=== PATIENT | female | born 2000 | race Caucasian/White ===

== ENCOUNTER 2018-03-31 11:22 | Outpatient (CLI) | payer MEDICAID ==
--- NOTE | 2018-04-02 23:05 | Non Stress Test Report ---
Non Stress Test Datetime Report Generated by CPN: 04/02/2018 23:04 DEMOGRAPHIC EGA NST: 34.6 INDICATION Indication for Study: Chronic Hypertension Indication for Study: Gestational Hypertension VITAL SIGNS Temperature - NST: 97.8 Pulse - NST: 112 RESP - NST: 20 NBPSYS NST: 120 NBPDIA NST: 72 MONITORING Monitor Explained: Monitor Explained; Test Explained; Patient Verbalized Understanding Monitor Explained: Monitor Explained; Test Explained; Patient Verbalized Understanding Time on Monitor: 03/31/2018 11:36 Time on Monitor: 03/31/2018 11:40 Time off Monitor: 03/31/2018 12:02 Time off Monitor: 03/31/2018 12:02 NST Duration: 26 NST Duration: 22 NST INTERVENTIONS NST Interventions: PO Hydration; Reposition Patient NST Interventions: PO Hydration Physician Notified NST: A. Lauren, CNM Physician Notified NST: A. Lauren, CNM BABY A: [id number] BABY A Movement : Present Movement : Present Contraction Frequency : none Contraction Frequency : none FHR Baseline : 135 FHR Baseline : 135 Accelerations : 15X15 Accelerations : 15X15 Decelerations : None Decelerations : None Variability : Moderate 6-25bpm Variability : Moderate 6-25bpm NST Review: Meets Criteria for Reactive NST NST Review: Meets Criteria for Reactive NST NST Review and Verified By : Gema Gonsales RN NST Results: Reactive NST Results: Reactive NST REPORT Report Trigger: Send Report
--- NOTE | 2018-04-03 01:43 | Non Stress Test Report ---
Non Stress Test Datetime Report Generated by CPN: 04/03/2018 01:43 DEMOGRAPHIC EGA NST: 35.1 INDICATION Indication for Study: Ordered by Provider URINE RESULTS Urine Protein, NST: Positive Urine Ketones - NST: Positive Urine Glucose - NST: Negative Urine Blood - NST: Negative MONITORING Monitor Explained: Monitor Explained; Test Explained; Patient Verbalized Understanding Time on Monitor: 04/02/2018 23:15 Time off Monitor: 04/03/2018 00:48 NST Duration: 93 NST INTERVENTIONS NST Interventions: PO Hydration; Other NST Interventions Other: Popsicle Physician Notified NST: Dr. Madrid BABY A Movement : Present Contraction Frequency : Occasional FHR Baseline : 125 Accelerations : 15X15 Decelerations : None Variability : Moderate 6-25bpm NST Review: Meets Criteria for Reactive NST NST Review and Verified By : Maria Alejandra Stroud RN NST Results: Reactive NST REPORT Report Trigger: Send Report
== END 2018-03-31 12:05 | disposition home or self-care (01) ==
LOC: LC 11:22
PROVIDERS: ATTEND Obstetrics & Gynecology
PROC: 4A1HXCZ Monitoring of Products of Conception, Cardiac Rate, External Approach (ICD-10-PCS; principal; 2018-03-31)
DX: O13.3 Gestational [pregnancy-induced] hypertension without significant proteinuria, third trimester (principal); Z3A.35 35 weeks gestation of pregnancy
CPT/HCPCS: 59025

== ENCOUNTER 2018-04-02 22:52 | Outpatient (CLI) | payer MEDICAID ==
[2018-04-02 23:27] LABS: APPEARANCE,URINE CLOUDY; BILIRUBIN,URINE NEGATIVE (NEGATIVE); CALCIUM OXALATE CRYSTALS,URINE FEW /HPF; COLOR,URINE AMBER; GLUCOSE, URINE NEGATIVE (NEGATIVE); KETONES,URINE 80 mg/dL (NEGATIVE); LEUKOCYTE ESTERASE,URINE MODERATE (NEGATIVE); NITRITE,URINE NEGATIVE (NEGATIVE); PROTEIN,URINE 30 mg/dL (NEGATIVE); URINE SPECIFIC GRAVITY 1.019
[2018-04-02 23:46] LABS: URINE AMPHETAMINES SCREEN NEGATIVE; URINE BARBITURATES SCREEN NEGATIVE; URINE BENZODIAZEPINES SCREEN NEGATIVE; URINE COCAINE SCREEN NEGATIVE; URINE MARIJUANA (THC) SCREEN NEGATIVE; URINE METHADONE SCREEN NEGATIVE; URINE PHENCYCLIDINE SCREEN NEGATIVE
== END 2018-04-03 00:58 | disposition home or self-care (01) ==
LOC: ER 22:52 → LC 04-03 00:58
PROVIDERS: ATTEND Obstetrics & Gynecology
PROC: 4A1HXCZ Monitoring of Products of Conception, Cardiac Rate, External Approach (ICD-10-PCS; principal; 2018-04-02)
DX: Z34.93 Encounter for supervision of normal pregnancy, unspecified, third trimester (principal); Z3A.35 35 weeks gestation of pregnancy
CPT/HCPCS: 59025; 80307; 81001

== ENCOUNTER 2018-04-18 10:45 | Outpatient (CLI) | payer MEDICAID ==
--- NOTE | 2018-04-18 13:13 | Non Stress Test Report ---
Non Stress Test Datetime Report Generated by CPN: 04/18/2018 13:12 DEMOGRAPHIC EGA NST: 37.3 INDICATION Indication for Study: Ordered by Provider MONITORING Monitor Explained: Monitor Explained; Test Explained; Patient Verbalized Understanding Time on Monitor: 04/18/2018 11:39 Time off Monitor: 04/18/2018 12:39 NST Duration: 60 NST INTERVENTIONS NST Interventions: None Physician Notified NST: C. Mancuso, CNM BABY A: [id number] BABY A Movement : Present Contraction Frequency : none FHR Baseline : 145 Accelerations : 15X15 Decelerations : None Variability : Moderate 6-25bpm NST Review: Meets Criteria for Reactive NST NST Review and Verified By : Flavio Anguiano RN NSRosario Results: Reactive NST REPORT Report Trigger: Send Report
== END 2018-04-18 12:42 | disposition home or self-care (01) ==
LOC: LC 10:45
PROVIDERS: ATTEND Obstetrics & Gynecology Gynecology
PROC: 4A1HXCZ Monitoring of Products of Conception, Cardiac Rate, External Approach (ICD-10-PCS; principal; 2018-04-18)
DX: O10.913 Unspecified pre-existing hypertension complicating pregnancy, third trimester (principal); Z3A.37 37 weeks gestation of pregnancy
CPT/HCPCS: 59025

== ENCOUNTER 2018-04-18 22:13 | Outpatient (CLI) | payer MEDICAID ==
--- NOTE | 2018-04-18 23:04 | Non Stress Test Report ---
Non Stress Test Datetime Report Generated by CPN: 04/18/2018 23:03 DEMOGRAPHIC EGA NST: 37.3 INDICATION Indication for Study: Ordered by Provider MONITORING Monitor Explained: Monitor Explained; Test Explained; Patient Verbalized Understanding Time on Monitor: 04/18/2018 22:40 Time off Monitor: 04/18/2018 23:00 NST Duration: 20 NST INTERVENTIONS NST Interventions: PO Hydration; Reposition Patient Physician Notified NST: Dr. Logan BABY A: [id number] BABY A Movement : Present Contraction Frequency : none FHR Baseline : 125 Accelerations : 15X15 Decelerations : None Variability : Moderate 6-25bpm NST Review: Meets Criteria for Reactive NST NST Review and Verified By : Otoniel RN NST Results: Reactive NST REPORT Report Trigger: Send Report
[2018-04-18 23:06] LABS: URINE AMPHETAMINES SCREEN NEGATIVE; URINE BARBITURATES SCREEN NEGATIVE; URINE BENZODIAZEPINES SCREEN NEGATIVE; URINE COCAINE SCREEN NEGATIVE; URINE MARIJUANA (THC) SCREEN NEGATIVE; URINE METHADONE SCREEN NEGATIVE; URINE PHENCYCLIDINE SCREEN NEGATIVE
== END 2018-04-18 23:17 | disposition home or self-care (01) ==
LOC: LC 22:13
PROVIDERS: ATTEND Obstetrics & Gynecology Gynecology
PROC: 4A1HXCZ Monitoring of Products of Conception, Cardiac Rate, External Approach (ICD-10-PCS; principal; 2018-04-18)
DX: O10.913 Unspecified pre-existing hypertension complicating pregnancy, third trimester (principal); O26.893 Other specified pregnancy related conditions, third trimester; R51 Headache; Z3A.37 37 weeks gestation of pregnancy
CPT/HCPCS: 59025; 80307

== ENCOUNTER 2018-04-25 08:47 | Outpatient (CLI) | payer MEDICAID ==
--- NOTE | 2018-04-25 09:55 | Non Stress Test Report ---
Non Stress Test Datetime Report Generated by CPN: 04/25/2018 09:55 DEMOGRAPHIC EGA NST: 38.3 INDICATION Indication for Study: Chronic Hypertension; Ordered by Provider Indication for Study (NST) Other: Office NST MONITORING Monitor Explained: Monitor Explained; Test Explained; Patient Verbalized Understanding Time on Monitor: 04/25/2018 09:30 Time off Monitor: 04/25/2018 09:54 NST Duration: 24 NST INTERVENTIONS NST Interventions: PO Hydration; Reposition Patient Physician Notified NST: Mc BABY A: [id number] BABY A Movement : Present Contraction Frequency : denies FHR Baseline : 125 Accelerations : 15X15 Decelerations : None Variability : Moderate 6-25bpm NST Review: Meets Criteria for Reactive NST NST Review and Verified By : MAGUE Diaz Results: Reactive NST REPORT Report Trigger: Send Report
== END 2018-04-25 10:07 | disposition home or self-care (01) ==
LOC: LC 08:47
PROVIDERS: ATTEND Obstetrics & Gynecology
PROC: 4A1HXCZ Monitoring of Products of Conception, Cardiac Rate, External Approach (ICD-10-PCS; principal; 2018-04-25)
DX: O16.3 Unspecified maternal hypertension, third trimester (principal); Z3A.38 38 weeks gestation of pregnancy
CPT/HCPCS: 59025

== ENCOUNTER 2018-04-27 09:03 | Outpatient (CLI) | payer MEDICAID ==
[2018-04-27 09:29] LABS: APPEARANCE,URINE SLIGHTLY-CLOUDY; BILIRUBIN,URINE NEGATIVE (NEGATIVE); GLUCOSE, URINE NEGATIVE (NEGATIVE); KETONES,URINE NEGATIVE (NEGATIVE); LEUKOCYTE ESTERASE,URINE NEGATIVE (NEGATIVE); NITRITE,URINE NEGATIVE (NEGATIVE); PROTEIN,URINE NEGATIVE (NEGATIVE); URINE SPECIFIC GRAVITY 1.016
[2018-04-27 09:34] LABS: COLOR,URINE DARK YELLOW
[2018-04-27 09:45] LABS: URINE AMPHETAMINES SCREEN NEGATIVE; URINE BARBITURATES SCREEN NEGATIVE; URINE BENZODIAZEPINES SCREEN NEGATIVE; URINE COCAINE SCREEN NEGATIVE; URINE MARIJUANA (THC) SCREEN NEGATIVE; URINE METHADONE SCREEN NEGATIVE; URINE PHENCYCLIDINE SCREEN NEGATIVE
--- NOTE | 2018-04-27 10:35 | Non Stress Test Report ---
Non Stress Test Datetime Report Generated by CPN: 04/27/2018 10:35 DEMOGRAPHIC EGA NST: 38.5 INDICATION Indication for Study: Ordered by Provider MONITORING Monitor Explained: Monitor Explained; Test Explained; Patient Verbalized Understanding Time on Monitor: 04/27/2018 09:15 Time off Monitor: 04/27/2018 10:24 NST Duration: 69 NST INTERVENTIONS NST Interventions: PO Hydration; Reposition Patient Physician Notified NST: J Arguelles CNM BABY A: [id number] BABY A Movement : Present Contraction Frequency : rare FHR Baseline : 130 Accelerations : 15X15 Decelerations : None Variability : Moderate 6-25bpm NST Review: Meets Criteria for Reactive NST NST Review and Verified By : Alvina Anguiano RN NST Results: Reactive NST REPORT Report Trigger: Send Report
== END 2018-04-27 10:30 | disposition home or self-care (01) ==
LOC: LC 09:03
PROVIDERS: ATTEND Student in an Organized Health Care Education/Training Program
PROC: 4A1HXCZ Monitoring of Products of Conception, Cardiac Rate, External Approach (ICD-10-PCS; principal; 2018-04-27)
DX: Z34.93 Encounter for supervision of normal pregnancy, unspecified, third trimester (principal)
CPT/HCPCS: 59025; 80307; 81005

== ENCOUNTER 2018-04-29 19:56 | Inpatient (IN) | payer MEDICAID ==
[2018-04-29] MEDS ORDERED: RINGERS SOLUTION,LACTATED 300 ML IV ONE (20:09)
[2018-04-29] MEDS ORDERED: DINOPROSTONE 10 MG VAGINAL INSERT.SR PV PRN (20:09)
[2018-04-29] MEDS ORDERED: OXYTOCIN/NORMAL SALINE 20 UNIT/1,000 ML RTUINJ IV PRN (20:09)
[2018-04-29 20:26] LABS: APPEARANCE,URINE SLIGHTLY-CLOUDY; BILIRUBIN,URINE NEGATIVE (NEGATIVE); COLOR,URINE YELLOW; GLUCOSE, URINE NEGATIVE (NEGATIVE); KETONES,URINE NEGATIVE (NEGATIVE); LEUKOCYTE ESTERASE,URINE NEGATIVE (NEGATIVE); NITRITE,URINE NEGATIVE (NEGATIVE); PROTEIN,URINE NEGATIVE (NEGATIVE); URINE SPECIFIC GRAVITY 1.005; UROBILINOGEN,URINE NEGATIVE mg/dL (<2.0)
[2018-04-29 20:33] LABS: ABSOLUTE LYMPHOCYTES (AUTO) 1.3 10^3/uL (0.5-4.7); ABSOLUTE MONOCYTES (AUTO) 0.5 10^3/uL (0.1-1.4); ABSOLUTE NEUT (AUTO) 5.2 10^3/uL (1.7-8.2); BASOPHILS % (AUTO) 0.4 % (0-2); EOSINOPHILS % (AUTO) 0.7 % (0-6); HEMATOCRIT 38.6 % (36.0-47.0); HEMOGLOBIN 13.2 g/dL (12.0-15.5); LYMPHOCYTES % (AUTO) 18.5 % (13-45); MEAN CORPUSCULAR HEMOGLOBIN 30.2 pg (27.0-33.4); MEAN CORPUSCULAR HGB CONC 34.3 g/dL (32.0-36.0); MEAN CORPUSCULAR VOLUME 88 fl (80-97); MONOCYTES % (AUTO) 6.5 % (3-13); PLATELET COUNT 149 10^3/uL (150-450); RED BLOOD COUNT 4.38 10^6/uL (3.72-5.28); RED CELL DISTRIBUTION WIDTH 13.5 % (11.5-14.0); SEGMENTED NEUTROPHILS % (AUTO) 73.9 % (42-78); TOTAL CELLS COUNTED % (AUTO) 100 %
[2018-04-29 20:39] LABS: URINE AMPHETAMINES SCREEN NEGATIVE; URINE BARBITURATES SCREEN NEGATIVE; URINE BENZODIAZEPINES SCREEN NEGATIVE; URINE COCAINE SCREEN NEGATIVE; URINE MARIJUANA (THC) SCREEN NEGATIVE; URINE METHADONE SCREEN NEGATIVE; URINE PHENCYCLIDINE SCREEN NEGATIVE
[2018-04-29] MEDS: RINGERS SOLUTION,LACTATED 1,000 ML IV PRN ×2 (20:43→22:55)
[2018-04-29] MEDS ORDERED: DINOPROSTONE 10 MG VAGINAL INSERT.SR ONE (22:27)
[2018-04-30] MEDS ORDERED: ZOLPIDEM TARTRATE 5 MG TABLET ONE (01:15)
[2018-04-30] MEDS ORDERED: GUAIFENESIN SYRP 200 MG/10 ML UDC PO ONE (05:12)
[2018-04-30] MEDS ORDERED: GUAIFENESIN SYRP 200 MG/10 ML UDC ONE (05:23)
--- NOTE | 2018-04-30 08:16 | Admission Physical ---
Datetime Report Generated by CPN: 04/30/2018 08:15 CURRENT ADMISSION Chief Complaint: Scheduled Induction of Labor Indication for Induction: Chronic Secondary HTN (Specify Cause); Gestational HTN Admit Impression : Term, Intrauterine ; Induction of Labor Admit Plan: Admit to Unit; Initiate Labor Induction Protocol ALLERGIES Medication Allergies: No Medication Allergies: No Known Allergies (04/29/2018) Latex: No Latex Allergies Food Allergies: Denies Environmental Allergies: Denies OBSTETRICAL HISTORY EDC: 05/06/2018 00:00 : 1 Para: 0 Term: 0 : 0 SAB: 0 IAB: 0 Ectopic: 0 Livin Cesareans: 0 VBACs: 0 Multiple Births: 0 Gestational Diabetes: No Rh Sensitization: No Incompetent Cervix: No LOUIS: No Infertility: No ART Treatment: No Uterine Anomaly: No IUGR: No Hx Previous C/S: No Macrosomia: No Hx Loss/Stillborn: No PIH: Yes Hx : No Placenta Previa/Abruption: No Depression/PP Depression: No PTL/PROM: No Post Hemorrhage: No Current Procedures: Ultrasound; NST Obstetrical History Comments: G1: current; CHTN SEE RECORDS Alcohol: No Marijuana : No Cocaine: No Other Illicit Drugs: No Cigarettes: Never Smoker. [id number] MEDICAL HISTORY Diabetes: No Blood Transfusion: No Pulmonary Disease (Asthma, TB): No Breast Disease: No Hypertension: Yes Doormaker Surgery: No Heart Disease: No Hosp/Surgery: Yes Autoimmune Disorder: No Anesthetic Complications: No Kidney Disease: No Abnormal Pap Smear: No Neuro/Epilepsy: No Psychiatric Disorders: No Other Medical Diseases: No Hepatitis/Liver Disease: No Significant Family History: No Varicosities/Phlebitis: No Trauma/Violence : No Thyroid Dysfunction: Yes Medical History Comments: Hypothryoidism; CHTN; Tonsillectomy and adenoidectomy as a child INFECTIOUS HISTORY Gonorrhea: No Genital Herpes: No Chlamydia: No Tuberculosis: No Syphilis: No Hepatitis: No HIV/AIDS Exposure: No Rash or Viral Illness: No HPV: No PHYSICAL EXAM General: Normal HEENT: Normal Neurologic: Normal Thyroid: Normal Heart: Normal Lungs: Normal Breast: Normal Back: Normal Abdomen: Normal Genitourinary Exam: Normal Extremities: Normal DTRs: Normal Pelvic Type: Adequate Vital Signs: Reviewed; Within Normal Limits VAGINAL EXAM Dilatation: 1 Effacement: 70 Station: -3 MEMBRANES Pooling: Negative Membranes: Intact FETUS A EGA: 39.1 Monitoring: External US FHR- Baseline: 150 Variability: Moderate 6-25bpm Accelerations: 15X15 Decelerations: None FHR Category: Category I Estimated Weight (gm): 3500 Presentation: Vertex PLANS FOR LABOR AND DELIVERY Labor and Delivery: None Pain Management: Epidural Feeding Preference: Both Benefit of Breast Feed Discussed: Yes Circumcision: Yes INFORMED CONSENT Signature: with User ID: [email or web address]
[2018-04-30] MEDS ORDERED: NALBUPHINE HCL INJ 10 MG/1 ML AMPULE INJ ONE (08:30)
[2018-04-30] MEDS: RINGERS SOLUTION,LACTATED 1,000 ML IV PRN ×2 (08:37→18:19)
[2018-04-30] MEDS ORDERED: NALBUPHINE HCL INJ 10 MG/1 ML AMPULE ONE (09:37)
[2018-04-30] MEDS ORDERED: OXYTOCIN 10 UNIT/ML VIAL ONE (10:08)
[2018-04-30] MEDS ORDERED: MISOPROSTOL 0.2 MG TABLET ONE (10:08)
[2018-04-30] MEDS ORDERED: LIDOCAINE 1% INJ-PF (10 MG/ML) 30 ML SDV ONE (10:08)
[2018-04-30] MEDS ORDERED: OXYTOCIN/NORMAL SALINE 20 UNIT/1,000 ML RTUINJ ONE (10:08)
--- NOTE | 2018-04-30 10:50 | L&D Progress Notes ---
PROGRESS NOTES Datetime Report Generated by CPN: 04/30/2018 10:49 PROGRESS NOTE Impression: Normal Progression of Labor Procedures: Sterile Vag Exam Plan: Continue Present Management; Induction; Cervical Ripening Informed Consent Obtained: Vaginal Delivery; Induction of Labor; Risks, Benefits and Alternatives Discussed Comment: cervidil out. Now desires Nubain. Cooks catheter placed. pt doing well. Begin pitocin. VAGINAL EXAM Dilatation: 2 Effacement: 60 Station: -3 Contractions: irreg LAST VAGINAL EXAM-NURSING Dilitation: 1.0 Dilitation: 1.0 Effacement: 70 Effacement: thick Station: -3 Station: -3 Contractions: Irregular ctx pattern Contractions: Pt reports feeling cramping Contractions: Pt denies feeling ctx's Contractions: Irregular ctx pattern Contractions: Pt denies feeling ctx's Contractions: Pt denies feeling ctx's Contractions: Pt denies feeling ctx's Contractions: Pt denies feeling ctx's and reports 0/5 pain Contractions: Pt denies feeling ctx's and reports 0/5 pain Contractions: no ctx. Contractions: no ctx MEMBRANES Pooling: Negative Membranes: Intact FETUS A FHR - Baseline: 125 Monitoring: External US Variability: Moderate 6-25bpm Accelerations: 15X15 Decelerations: None FHR Category: Category I : 39.1 Estimated Weight (gm): 3500 Presentation: Vertex SIGNATURE SIGNATURE: [id number];14,[id number];13,[id number] SIGNATURE: 13,[id number];14,[id number] SIGNATURE: 14,[id number] SIGNATURE: 14,[id number] SIGNATURE: 14,[id number] SIGNATURE: 14,[id number] SIGNATURE: 14,[id number] SIGNATURE: 14,[id number] Signature: with User ID: [email or web address]
[2018-04-30] MEDS ORDERED: LABETALOL HCL 200 MG TABLET ONE (12:52)
[2018-04-30] MEDS ORDERED: EPHEDRINE SULFATE INJ 50 MG/1 ML AMPULE ONE (13:15)
[2018-04-30] MEDS ORDERED: FENTANYL/BUPIVACAINE/NS/PF 300 MCG/150 ML RTUINJ EPI ONE (13:16)
[2018-04-30] MEDS ORDERED: BUPIVACAINE HCL 0.25 % INJ/PF (2.5 MG/1 ML) 30 ML VIAL ONE ×2 (13:16→20:15)
[2018-04-30] MEDS ORDERED: LIDOCAINE 1.5%/EPINEPHRINE INJ-PF 30 ML SDV ONE (13:16)
[2018-04-30 14:13] LABS: ABSOLUTE LYMPHOCYTES (AUTO) 0.7 10^3/uL (0.5-4.7); ABSOLUTE MONOCYTES (AUTO) 0.4 10^3/uL (0.1-1.4); ABSOLUTE NEUT (AUTO) 8.6 10^3/uL (1.7-8.2); BASOPHILS % (AUTO) 0.1 % (0-2); HEMATOCRIT 37.1 % (36.0-47.0); HEMOGLOBIN 12.7 g/dL (12.0-15.5); LYMPHOCYTES % (AUTO) 7.6 % (13-45); MEAN CORPUSCULAR HEMOGLOBIN 30.2 pg (27.0-33.4); MEAN CORPUSCULAR HGB CONC 34.2 g/dL (32.0-36.0); MEAN CORPUSCULAR VOLUME 88 fl (80-97); MONOCYTES % (AUTO) 3.6 % (3-13); PLATELET COUNT 123 10^3/uL (150-450); RED CELL DISTRIBUTION WIDTH 13.6 % (11.5-14.0); SEGMENTED NEUTROPHILS % (AUTO) 88.7 % (42-78); TOTAL CELLS COUNTED % (AUTO) 100 %; WHITE BLOOD COUNT 9.7 10^3/uL (4.0-10.5)
[2018-04-30] MEDS ORDERED: DIPHENHYDRAMINE HCL 50 MG/ML VIAL ONE (17:32)
[2018-04-30] MEDS ORDERED: DIPHENHYDRAMINE HCL 50 MG/ML VIAL IV ONE (17:43)
[2018-04-30] MEDS ORDERED: DEXTROSE 5%-WATER 1000 ML 1,000 ML IV PRN (18:21)
[2018-04-30] MEDS ORDERED: LIDOCAINE 2% INJ-PF (20 MG/ML) 10 ML AMPUL ONE (20:08)
--- NOTE | 2018-05-01 00:42 | L&D Progress Notes ---
PROGRESS NOTES Datetime Report Generated by CPN: 05/01/2018 00:42 PROGRESS NOTE Impression: Normal Progression of Labor Procedures: Sterile Vag Exam Plan: Continue Present Management; Induction Informed Consent Obtained: Vaginal Delivery; Induction of Labor; Risks, Benefits and Alternatives Discussed Comment: IUPC and FSE placed to achieve adequate ctx on last check approx 2 hours ago. Now AL/c/+2. Anticipate VAGINAL EXAM Dilatation: AL Effacement: 100 Station: 2 Contractions: q 2 Dilitation: anterior lip Dilitation: 8.0 Dilitation: 9.0 Dilitation: 7-8 Dilitation: 7-8 Dilitation: 5.0 Effacement: 100 Effacement: 90 Effacement: 90 Effacement: 90 Effacement: 90 Station: 2 Station: 0 (Annotations: edema of cervix noted. Pt with strong urge to push. Instructed not to actively push with uc. ) Station: -1 (Annotations: urge to push. Instructed to breathe through pressure as cervix is not completely dilated at this time) Station: -1 Station: -2 Contractions: MVU 220 Contractions: MVU 210 Contractions: MVU 190 Contractions: MVU 220 Contractions: RN at bedside palpating contractions Contractions: IUPC inserted by Dr Hong Contractions: RN at bedside adjusting monitors and palpating irregular contractions Contractions: C/O severe rectal pressure. Dr Gama aware. IVF bolus 300 ml D5W Contractions: coupling Contractions: abd palpates soft between uc Contractions: coupling Contractions: requests epidural IVF Karely started MEMBRANES Membranes: Ruptured Amniotic Fluid Color: Clear FETUS A FHR - Baseline: 125 Monitoring: External US Decelerations: None FHR Category: Category I FETUS C SIGNATURE: 13,[id number];14,[id number];10,[id number] Signature: with User ID: [email or web address]
[2018-05-01] MEDS ORDERED: OXYTOCIN 10 UNIT/ML VIAL ONE (02:22)
[2018-05-01] MEDS ORDERED: DIPHENHYDRAMINE HCL 25 MG CAPSULE PO PRN (02:45)
[2018-05-01] MEDS ORDERED: MISOPROSTOL 0.2 MG TABLET PR ONE (02:45)
[2018-05-01] MEDS ORDERED: GLYCERIN/WITCH HAZEL LEAF 1 EACH MED..PAD TP PRN (02:45)
[2018-05-01] MEDS ORDERED: OXYTOCIN/NORMAL SALINE 20 UNIT/1,000 ML RTUINJ IV PRN (02:45)
[2018-05-01] MEDS ORDERED: NA PHOS,M-B/NA PHOS,DI-BA (ADULT) 133 ML ENEMA PR PRN (02:45)
[2018-05-01] MEDS ORDERED: ACETAMINOPHEN 325 MG TABLET PO PRN (02:45)
[2018-05-01] MEDS ORDERED: PSEUDOEPHEDRINE HCL 30 MG TABLET PO PRN (02:45)
[2018-05-01] MEDS ORDERED: BENZOCAINE/MENTHOL AEROSOL SPRAY 56 ML TOP PRN (02:45)
[2018-05-01] MEDS ORDERED: MEASLES,MUMPS&RUBELLA VACC/PF 0.5 ML VIAL SUBCUT PRN (02:45)
[2018-05-01] MEDS ORDERED: PROMETHAZINE HCL INJ 25 MG/1 ML VIAL IV PRN (02:45)
[2018-05-01] MEDS ORDERED: MAGNESIUM HYDROXIDE SUSP 30 ML UDCUP PO PRN (02:45)
[2018-05-01] MEDS ORDERED: ACETAMINOPHEN WITH CODEINE #3 TABLET PO PRN ×2 (02:45)
[2018-05-01] MEDS ORDERED: PROMETHAZINE HCL 25 MG TABLET PO PRN (02:45)
[2018-05-01] MEDS ORDERED: DIBUCAINE 1% OINTMENT 28 GM TP PRN (02:45)
[2018-05-01] MEDS ORDERED: DIPH/PERTUSS(ACELL)/TETANUS VAC/PF 0.5 ML SYR (>=10YO) IM PRN (02:45)
[2018-05-01] MEDS ORDERED: ZOLPIDEM TARTRATE 5 MG TABLET PO PRN (02:45)
[2018-05-01] MEDS ORDERED: PROMETHAZINE HCL 25 MG SUPP.RECT PR PRN (02:45)
--- NOTE | 2018-05-01 03:50 | Delivery Summary ---
Del Sum A-C Datetime Report Generated by CPN: 05/01/2018 03:50 DELIVERY PERSONNEL DELIVERY PERSONNEL: [id number] Delivery Doctor:: Cami Hong MD Labor and Delivery Nurse:: Salina Cruz RN Labor and Delivery Nurse:: Arianne Parikh RN Maintenance Equipment Operator/ASSISTANT LIBRARIAN: Sally Moncada, ANTIQUE REPAIRER MATERNAL INFORMATION Delivery Anesthesia: Epidural Medications After Delivery: Pitocin 10 Units IM; Pitocin Drip 20 Units/1000ml NSS; Cytotec 1000mcg Per Rectum/Vagina Maternal Complications: None Provider Comments: VMI delivered in LUIS A presentation with tight nuchal and body cord delivered through. Shoulders and body delivered without difficulty. Cord doubly clamped and cut and to warmer for NICU. FF at U but lost IV and 20units IM pitocin given. Cytotec 1000mcg given AL. Left vaginal sidewall laceration repaired. Good hemostasis. Mother stable and baby to NICU. No maternal fever or tachycardia during labor. SROM at approx 1000 am therefore 16 hours ruptured at delivery. Baby to NICU for fever. LABOR SUMMARY EDC: 05/06/2018 00:00 No. Babies in Womb: 1 Attempted: No Labor Anesthesia: Epidural LABOR INFORMATION Reason for Induction: Gestational Hypertension Onset of Labor: 04/30/2018 10:24 Complete Dilatation: 05/01/2018 01:22 Cervical Ripening Agents: Cervidil Oxytocin: Induction Group B Beta Strep: Negative Steroids Given: None Reason Steroids Not Administered: Not Applicable MEMBRANES Membranes Rupture Method: Spontaneous Rupture of Membranes: 04/30/2018 10:55 Length of Rupture (hr): 15.37 Amniotic Fluid Color: Clear Amniotic Fluid Amount: Moderate Amniotic Fluid Odor: Normal STAGES OF LABOR Stage 1 hr: 14 Stage 1 min: 58 Stage 2 hr: 0 Stage 2 min: 55 Stage 3 hr: 0 Stage 3 min: 2 Total Time in Labor hr: 15 Total Time in Labor min: 55 VAGINAL DELIVERY Episiotomy: None Laceration #1: Vaginal Laceration Extension #1: N/A Laceration Repair: Yes Laceration Repair Note: Left labial laceration repaired with good hemostasis. Sponge Count Correct: Yes Sharps Count Correct: Yes CSECTION DELIVERY Primary Indication: N/A Secondary Indication: N/A CSection Incidence: N/A Labor: N/A Elective: N/A CSection Incision: N/A BABY A INFORMATION Infant Delivery Date/Time: 05/01/2018 02:17 Method of Delivery: Vaginal Born in Route : No : N/A Forceps: N/A Vacuum Extraction: N/A Shoulder Dystocia : No PRESENTATION/POSITION BABY A Presentation: Cephalic Cephalic Presentation: Vertex Vertex Position: Left Occipital Anterior Breech Presentation: N/A PLACENTA INFORMATION BABY A Placenta Delivery Time : 05/01/2018 02:19 Placenta Method of Delivery: Spontaneous Placenta Status: Delivered SCORES BABY A Heart Rate 1 min: >100 bpm Resp Effort 1 min: Slow, Irregular Reflex Irritability 1 min: Cough or Sneeze or Pulls Away Muscle Tone 1 min: Some Flexion of Extremities Color 1 min: Body [place], Extremities Blue Resuscitation Effort 1 min: Tactile Stimulation SCORE 1 MIN: 7 Heart Rate 5 min: >100 bpm Resp Effort 5 min: Good Cry Reflex Irritability 5 min: Cough or Sneeze or Pulls Away Muscle Tone 5 min: Active Motion Color 5 min: Body [place], Extremities Blue SCORE 5 MIN: 9 INFANT INFORMATION BABY A Gestational Age at Delivery: 39.1 Gestational Status: Full Term- 39- 40.6 Weeks Infant Outcome : Liveborn Condition : Stable Sex: Male IDENTIFICATION BABY A Infant Verification Date/Time: 05/01/2018 03:28 ID Band Number: [id number] Mother's Name Verified: Yes Infant RN Verifying : NDoyle RN Additional Verifying Personnel: [facility] RN WEIGHT/LENGTH BABY A Infant Birthweight (gm): 3556 Weight (lb): 7 Weight (oz): 13 Length (in): 20.25 Length (cm): 51.44 CORD INFORMATION BABY A No. Cord Vessels: 3 Nuchal Cord : Around Neck x1, Tight Nuchal Cord- Other: body cord Suction: Mouth; Nose BABY B INFORMATION : N/A SIGNATURES Signature: with User ID: [email or web address]
[2018-05-01] MEDS: LABETALOL HCL 200 MG TABLET PO SCH ×4 (05:11→21:33)
[2018-05-01] MEDS: IBUPROFEN 800 MG TABLET PO SCH ×3 (05:21→21:35)
[2018-05-01] MEDS: DOCUSATE SODIUM 100 MG CAPSULE PO SCH ×2 (09:22→17:13)
[2018-05-01] MEDS: FERROUS SULFATE 325 MG TABLET PO SCH ×2 (09:22→17:13)
[2018-05-01] MEDS: SENNOSIDES/DOCUSATE 8.6-50 MG 1 EACH TABLET PO SCH (09:22)
[2018-05-01] MEDS: PRENATAL VITAMIN W DHA CAPSULE PO SCH (09:22)
[2018-05-01] MEDS: FAMOTIDINE 20 MG TABLET PO SCH ×2 (09:22→21:33)
--- NOTE | 2018-05-01 09:49 | PDOC PROGRESS REPORT ---
Subjective-OB Progress Note for:: 05/01/18 Subjective: Pt doing well, no concerns. She reports light bleeding, regular diet and voiding without difficulty. Physical Exam (OB) Vital Signs: Temp Pulse Resp BP Pulse Ox 98.7 F 111 H 19 119/58 L 97 05/01/18 07:40 05/01/18 07:40 05/01/18 07:40 05/01/18 07:40 05/01/18 07:40 Intake & Output 04/30/18 05/01/18 05/02/18 06:59 06:59 06:59 Intake Total 275 1004 1999 Balance 275 1004 1999 Weight 115 kg - PIH/Pre-Eclampsia DTR's: 2 + Clonus: Negative Headache: Absent Epigastric Pain: No Visual Changes: No - Abdomen Description: Soft Hernia Present: No Fundal Description: Firm, Midline Fundal Height: u/3 - u/4 Objective-Diagnostic Laboratory: 04/30/18 13:42 04/30/18 13:42 WBC 9.7 RBC 4.20 Hgb 12.7 Hct 37.1 MCV 88 MCH 30.2 MCHC 34.2 RDW 13.6 Plt Count 123 L Seg Neutrophils % 88.7 H Lymphocytes % 7.6 L Monocytes % 3.6 Eosinophils % 0.0 Basophils % 0.1 Absolute Neutrophils 8.6 H Absolute Lymphocytes 0.7 Absolute Monocytes 0.4 Absolute Eosinophils 0.0 Absolute Basophils 0.0 Assessment and Plan(PN) - Assessment and Plan (1) Vaginal delivery Is this a current diagnosis for this admission?: Yes (2) Chronic hypertension affecting Is this a current diagnosis for this admission?: Yes - Time Spent with Patient Time with patient: Less than 15 minutes Medications reviewed and adjusted accordingly: Yes - Disposition Anticipated Discharge: Home Within: within 24 hours
[2018-05-01] MEDS: GUAIFENESIN SYRP 200 MG/10 ML UDC PO PRN (17:15)
[2018-05-02] MEDS: IBUPROFEN 800 MG TABLET PO SCH ×3 (05:32→22:46)
[2018-05-02 06:19] LABS: MEAN CORPUSCULAR HEMOGLOBIN 30.5 pg (27.0-33.4); MEAN CORPUSCULAR HGB CONC 34.2 g/dL (32.0-36.0); MEAN CORPUSCULAR VOLUME 89 fl (80-97); PLATELET COUNT 117 10^3/uL (150-450); RED BLOOD COUNT 3.36 10^6/uL (3.72-5.28); RED CELL DISTRIBUTION WIDTH 13.8 % (11.5-14.0); WHITE BLOOD COUNT 10.4 10^3/uL (4.0-10.5)
[2018-05-02 06:20] LABS: HEMOGLOBIN 10.3 g/dL (12.0-15.5)
[2018-05-02] MEDS: FAMOTIDINE 20 MG TABLET PO SCH ×2 (09:15→22:46)
[2018-05-02] MEDS: FERROUS SULFATE 325 MG TABLET PO SCH ×2 (09:15→17:14)
[2018-05-02] MEDS: DOCUSATE SODIUM 100 MG CAPSULE PO SCH ×2 (09:15→17:14)
[2018-05-02] MEDS: PRENATAL VITAMIN W DHA CAPSULE PO SCH (09:15)
[2018-05-02] MEDS: LABETALOL HCL 200 MG TABLET PO SCH ×2 (09:16→22:47)
[2018-05-02] MEDS: SENNOSIDES/DOCUSATE 8.6-50 MG 1 EACH TABLET PO SCH (09:16)
--- NOTE | 2018-05-02 09:51 | PDOC PROGRESS REPORT ---
Subjective-OB Progress Note for:: 05/02/18 Subjective: Pt doing well, bonding with baby. She reports light bleeding, reg diet and voiding without difficulty. She has a cold and is now wearing a mask, afebrile. Encouraged . Physical Exam (OB) Vital Signs: Temp Pulse Resp BP Pulse Ox 98.2 F 86 18 114/68 100 05/02/18 07:00 05/02/18 07:00 05/02/18 07:00 05/02/18 07:00 05/02/18 07:00 Intake & Output 05/01/18 05/02/18 05/03/18 06:59 06:59 06:59 Intake Total 1004 2400 Balance 1004 2400 - Abdomen Description: Soft, Round Hernia Present: No Fundal Description: Firm, Midline Fundal Height: u/u - u/2 Objective-Diagnostic Laboratory: 05/02/18 06:00 05/02/18 06:00 WBC 10.4 RBC 3.36 L Hgb 10.3 L D Hct 30.0 L MCV 89 MCH 30.5 MCHC 34.2 RDW 13.8 Plt Count 117 L Assessment and Plan(PN) - Assessment and Plan (1) Vaginal delivery Is this a current diagnosis for this admission?: Yes (2) Chronic hypertension affecting Is this a current diagnosis for this admission?: Yes - Time Spent with Patient Time with patient: Less than 15 minutes Medications reviewed and adjusted accordingly: Yes - Disposition Anticipated Discharge: Home Within: within 24 hours
[2018-05-02] MEDS: GUAIFENESIN SYRP 200 MG/10 ML UDC PO PRN ×2 (17:13→22:54)
[2018-05-03] MEDS: GUAIFENESIN SYRP 200 MG/10 ML UDC PO PRN (06:09)
[2018-05-03] MEDS: IBUPROFEN 800 MG TABLET PO SCH (06:10)
[2018-05-03 08:31] VITALS: BP 110/50
[2018-05-03 08:38] LABS: HEPATITIS C VIRUS AB <0.1 s/co ratio (0.0-0.9)
--- NOTE | 2018-05-03 08:48 | PDOC DISCHARGE SUMMARY ---
Final Diagnosis Discharge Date: 05/03/18 - Final Diagnosis (1) Vaginal delivery Is this a current diagnosis for this admission?: Yes (2) Chronic hypertension affecting Is this a current diagnosis for this admission?: Yes Discharge Data - Discharge Medication Home Medications: Labetalol HCl 100 mg PO BID 03/31/18 Pnv No.95/Ferrous Fum/Folic AC [ Vitamin Tablet] 1 tab PO DAILY 03/31/18 Reason(s) for Admission: Induction of Labor, PIH Procedures: NST Intrapartum Procedure(s): Spontaneous Vaginal Delivery Complication(s): Laceration-Vaginal Laceration-Degree: 1st - Diagnosis Test Laboratory: Temp Pulse Resp BP Pulse Ox 98.2 F 86 18 114/68 100 05/02/18 07:00 05/02/18 07:00 05/02/18 07:00 05/02/18 07:00 05/02/18 07:00 04/29/18 04/29/18 04/30/18 20:09 20:24 13:42 RBC 4.38 4.20 Hgb 13.2 12.7 Hct 38.6 37.1 Urine Opiates Screen NEGATIVE 05/02/18 06:00 RBC 3.36 L Hgb 10.3 L D Hct 30.0 L Urine Opiates Screen - Discharge information/Instructions Discharge Activity: Activity As Tolerated, Pelvic Rest Discharge Diet: Regular Disposition: HOME, SELF-CARE Follow up with: [facility] in: 1, Weeks
[2018-05-03] MEDS: LABETALOL HCL 200 MG TABLET PO SCH (10:39)
[2018-05-03] MEDS: DOCUSATE SODIUM 100 MG CAPSULE PO SCH (10:40)
[2018-05-03] MEDS: SENNOSIDES/DOCUSATE 8.6-50 MG 1 EACH TABLET PO SCH (10:40)
[2018-05-03] MEDS: PRENATAL VITAMIN W DHA CAPSULE PO SCH (10:40)
[2018-05-03] MEDS: FAMOTIDINE 20 MG TABLET PO SCH (10:40)
[2018-05-03] MEDS: FERROUS SULFATE 325 MG TABLET PO SCH (10:40)
== END 2018-05-03 12:30 | disposition home or self-care (01) | DRG 807 ==
LOC: LR 19:56 → 2S 05-01 04:25
PROVIDERS: ADMIT Student in an Organized Health Care Education/Training Program; ATTEND Student in an Organized Health Care Education/Training Program
PROC: 0HQ9XZZ Repair Perineum Skin, External Approach (ICD-10-PCS; 2018-04-29)
PROC: 3E0P7VZ Introduction of Hormone into Female Reproductive, Via Natural or Artificial Opening (ICD-10-PCS; 2018-04-29)
PROC: 10E0XZZ Delivery of Products of Conception, External Approach (ICD-10-PCS; principal; 2018-05-01)
PROC: 10H07YZ Insertion of Other Device into Products of Conception, Via Natural or Artificial Opening (ICD-10-PCS; 2018-05-01)
PROC: 4A1H7CZ Monitoring of Products of Conception, Cardiac Rate, Via Natural or Artificial Opening (ICD-10-PCS; 2018-05-01)
DX: O69.1XX0 Labor and delivery complicated by cord around neck, with compression, not applicable or unspecified (principal); Z37.0 Single live birth; O70.0 First degree perineal laceration during delivery; O13.4 Gestational [pregnancy-induced] hypertension without significant proteinuria, complicating childbirth; O69.2XX0 Labor and delivery complicated by other cord entanglement, with compression, not applicable or unspecified; O99.284 Endocrine, nutritional and metabolic diseases complicating childbirth; E03.9 Hypothyroidism, unspecified; Z3A.39 39 weeks gestation of pregnancy
CPT/HCPCS: 36415; 80307; 81001; 85025; 85027; 86592; 86803; 86804; 86850; 86900; 86901; 94760; J1200; J2300; J2590; J3010; J3490

== ENCOUNTER 2019-01-28 19:05 | Emergency (ER) | payer MEDICAID ==
[2019-01-28] MEDS ORDERED: NORMAL SALINE 1000 ML 1,000 ML IV ONE ×2 (20:29→21:55)
[2019-01-28] MEDS ORDERED: METOCLOPRAMIDE HCL INJ/PF 10 MG/2 ML SDV IV ONE (20:30)
[2019-01-28] MEDS ORDERED: DIPHENHYDRAMINE HCL 50 MG/ML VIAL IV ONE (20:30)
[2019-01-28 21:04] LABS: ABSOLUTE BASOPHILS # (AUTO) 0.1 10^3/uL (0.0-0.2); ABSOLUTE LYMPHOCYTES (AUTO) 0.8 10^3/uL (0.5-4.7); ABSOLUTE MONOCYTES (AUTO) 0.3 10^3/uL (0.1-1.4); ABSOLUTE NEUT (AUTO) 7.2 10^3/uL (1.7-8.2); BASOPHILS % (AUTO) 0.8 % (0-2); EOSINOPHILS % (AUTO) 0.2 % (0-6); HEMATOCRIT 36.2 % (36.0-47.0); HEMOGLOBIN 12.2 g/dL (12.0-15.5); LYMPHOCYTES % (AUTO) 9.1 % (13-45); MEAN CORPUSCULAR HGB CONC 33.6 g/dL (32.0-36.0); MEAN CORPUSCULAR VOLUME 83 fl (80-97); MONOCYTES % (AUTO) 3.6 % (3-13); PLATELET COUNT 183 10^3/uL (150-450); RED BLOOD COUNT 4.34 10^6/uL (3.72-5.28); RED CELL DISTRIBUTION WIDTH 13.8 % (11.5-14.0); SEGMENTED NEUTROPHILS % (AUTO) 86.3 % (42-78); TOTAL CELLS COUNTED % (AUTO) 100 %; WHITE BLOOD COUNT 8.4 10^3/uL (4.0-10.5)
[2019-01-28 21:18] LABS: ALBUMIN 3.5 g/dL (3.5-5.0); ALKALINE PHOSPHATASE 135 U/L (38-126); ANION GAP 10 (5-19); ASPARTATE AMINO TRANSFERASE 16 U/L (14-36); BILIRUBIN,DIRECT 0.1 mg/dL (0.0-0.4); BILIRUBIN,TOTAL 0.7 mg/dL (0.2-1.3); BLOOD UREA NITROGEN 7 mg/dL (7-20); CALCIUM 9.2 mg/dL (8.4-10.2); CARBON DIOXIDE 23 mmol/L (22-30); CHLORIDE 103 mmol/L (98-107); GLUCOSE 83 mg/dL (75-110); POTASSIUM 3.9 mmol/L (3.6-5.0); TOTAL PROTEIN 6.6 g/dL (6.3-8.2)
[2019-01-28 21:29] LABS: APPEARANCE,URINE SLIGHTLY-CLOUDY; BILIRUBIN,URINE NEGATIVE (NEGATIVE); COLOR,URINE AMBER; GLUCOSE, URINE NEGATIVE (NEGATIVE); KETONES,URINE 80 mg/dL (NEGATIVE); LEUKOCYTE ESTERASE,URINE SMALL (NEGATIVE); NITRITE,URINE NEGATIVE (NEGATIVE); PROTEIN,URINE 30 mg/dL (NEGATIVE); URINE SPECIFIC GRAVITY 1.027
--- NOTE | 2019-01-28 21:50 | ER Document Report ---
ED GI/ - General Chief Complaint: Nausea/Vomiting Stated Complaint: VOMITING Time Seen by Provider: 01/28/19 20:29 Primary Care Provider: MANI GUTIERREZ MD [Primary Care Provider] - Follow up as needed Notes: Patient is a 18-year-old female currently 25 weeks with twins, G2, P1 presents to the emergency department with complaint of nausea vomiting since this morning. Initially states she has some generalized epigastric discomfort. Patient's denying any fevers, chills, chest pain, shortness of breath, abdominal pain, vaginal discharge to include bleeding. Patient voices she intermittently has been nauseated throughout her but this morning her nausea and vomiting continued which is why she initially presents to the emergency department this evening. TRAVEL OUTSIDE OF THE [place] IN LAST 30 DAYS: No - HPI heart tones (bpm): 151 - Related Data Allergies/Adverse Reactions: No Known Allergies Allergy (Verified 04/29/18 23:36) Past Medical History - General Information source: Patient - Social History Smoking Status: Never Smoker Frequency of alcohol use: None Drug Abuse: None Family History: Reviewed & Not Pertinent Patient has suicidal ideation: No Patient has homicidal ideation: No Review of Systems - Review of Systems Constitutional: denies: Fever EENT: No symptoms reported Cardiovascular: No symptoms reported Respiratory: No symptoms reported Gastrointestinal: See HPI Genitourinary: See HPI Female Genitourinary: See HPI Musculoskeletal: No symptoms reported Skin: No symptoms reported Hematologic/Lymphatic: No symptoms reported Neurological/Psychological: No symptoms reported Physical Exam - Vital signs Vitals: Temp Pulse BP Pulse Ox 98.4 F 136 H 114/74 100 01/28/19 19:19 01/28/19 19:19 01/28/19 19:19 01/28/19 19:19 - Notes Notes: GENERAL: Alert, interacts well. No acute distress. HEAD: Normocephalic, atraumatic. EYES: Pupils equal, round, and reactive to light. Extraocular movements intact. ENT: Oral mucosa moist, tongue midline. NECK: Full range of motion. Supple. Trachea midline. LUNGS: Clear to auscultation bilaterally, no wheezes, rales, or rhonchi. No respiratory distress. HEART: Regular rate and rhythm. No murmur ABDOMEN: Soft, non-tender. Non-distended. Bowel sounds present in all 4 quadrants. EXTREMITIES: Moves all 4 extremities spontaneously. No edema, normal radial and dorsalis pedis pulses bilaterally. No cyanosis. BACK: no cervical, thoracic, lumbar midline tenderness. No saddle anesthesia, normal distal neurovascular exam. No CVA tenderness noted bilaterally. NEUROLOGICAL: Alert and oriented x3. Normal speech. cranial nerves II through XII grossly intact. PSYCH: Normal affect, normal mood. SKIN: Warm, dry, normal turgor. No rashes or lesions noted. Course - Re-evaluation Re-evalutation: 01/28/19 21:48 Laboratory 01/28/19 01/28/19 01/28/19 20:40 20:40 20:40 WBC 8.4 RBC 4.34 Hgb 12.2 Hct 36.2 MCV 83 MCH 28.0 MCHC 33.6 RDW 13.8 Plt Count 183 Lymph % (Auto) 9.1 L [place] % (Auto) 3.6 Eos % (Auto) 0.2 Baso % (Auto) 0.8 Absolute Neuts (auto) 7.2 Absolute Lymphs (auto) 0.8 Absolute Monos (auto) 0.3 Absolute Eos (auto) 0.0 Absolute Basos (auto) 0.1 Seg Neutrophils % 86.3 H Sodium 135.9 L Potassium 3.9 Chloride 103 Carbon Dioxide 23 Anion Gap 10 BUN 7 Creatinine 0.58 Est GFR ( Amer) > 60 Est GFR (MDRD) Non-Af > 60 Glucose 83 Calcium 9.2 Total Bilirubin 0.7 Direct Bilirubin 0.1 Neonat Total Bilirubin Not Reportable Neonat Direct Bilirubin Not Reportable Neonat Indirect Bili Not Reportable AST 16 ALT 12 Alkaline Phosphatase 135 H Total Protein 6.6 Albumin 3.5 Lipase 24.7 Urine Color GENARO Urine Appearance SLIGHTLY-CLOUDY Urine pH 6.0 Ur Specific [place] 1.027 Urine Protein 30 H Urine Glucose (UA) NEGATIVE Urine Ketones 80 H Urine Blood NEGATIVE Urine Nitrite NEGATIVE Urine Bilirubin NEGATIVE Urine Urobilinogen 2.0 H Ur Leukocyte Esterase SMALL H Urine WBC (Auto) 5 Urine RBC (Auto) 1 U Hyaline Cast (Auto) 3 Urine Bacteria (Auto) 1+ Squamous Epi Cells Auto 8 Urine Mucus (Auto) FEW Urine Ascorbic Acid NEGATIVE Patient's urine shows small high leukocyte esterase, 5 WBCs and +1 bacteria. Sent for culture. Based on patient being and having nausea and vomiting will treat prophylactically with Keflex. Discussed [id number] use of Unisom and vitamin B6 and following up with [facility]. Patient has been able to drink fluids with no further episode of vomiting in the emergency room. Voices she overall feels a lot better. Pts HR was noted to be elevated upon arrival, her urine was concentrated with an elevated specific gravity. Patient was initially treated with 1 L of fluid. Heart rate came down to 116. After second liter patient's heart rate was noted to be 101. At this time will discharge with return precautions and follow-up recommendations. Verbal discharge instructions given a the bedside and opportunity for questions given. Medication warnings reviewed. Patient is in agreement with this plan and has verbalized understanding of return precautions and the need for primary care follow-up in the next 24-72 hours. This medical record was dictated with voice recognizing software. There may be grammatical, syntax errors that are unintended. - Vital Signs Vital signs: Temp Pulse Resp BP Pulse Ox 98.2 F 101 H 16 122/69 100 01/28/19 23:30 01/28/19 23:30 01/28/19 23:30 01/28/19 23:30 01/28/19 23:30 - Laboratory Result Diagrams: 01/28/19 20:40 01/28/19 20:40 Laboratory results interpreted by me: 01/28/19 01/28/19 01/28/19 20:40 20:40 20:40 Lymph % (Auto) 9.1 L Seg Neutrophils % 86.3 H Sodium 135.9 L Alkaline Phosphatase 135 H Urine Protein 30 H Urine Ketones 80 H Urine Urobilinogen 2.0 H Ur Leukocyte Esterase SMALL H Discharge - Discharge Clinical Impression: Urinary tract infection affecting Nausea and vomiting Qualifiers: Vomiting type: unspecified Vomiting Intractability: non-intractable Qualified Code(s): R11.2 - Nausea with vomiting, unspecified Condition: Stable Disposition: HOME, SELF-CARE Instructions: Cephalexin ([facility]), Intravenous (IV) Fluids ([facility]), Urinary Tract Infection ([facility]), Vomiting ([facility]) Additional Instructions: As we discussed you have been seen and treated in the emergency department for your nausea, vomiting, urinary tract infection during . Please take antibiotics as prescribed. For your nausea and vomiting while you can buy [id number] Unisom. It comes in 25 mg tablets. You can take 1/2 tablet which is 12.5 mg at bedtime daily as needed for nausea. This medication may make you drowsy it is a sleep aid. You can also take Pyridoxine (Vitamin B6) comes in 25 mg tablets. Take 1 tablet every 8 hours as needed for nausea. Other options: Acupuncture wrist bands (called Seabandz) apply pressure to the wrist. Some people find these help, you can find them at the drugstore. Prescriptions: Cephalexin Monohydrate [Keflex 500 mg Capsule] 500 mg PO BID 7 Days #14 capsule Referrals: MANI GUTIERREZ MD [Primary Care Provider] - Follow up as needed
[2019-01-28 23:39] VITALS: BP 122/69
== END 2019-01-28 23:44 | disposition home or self-care (01) ==
LOC: ER 19:05
DX: O21.2 Late vomiting of pregnancy (principal); O23.42 Unspecified infection of urinary tract in pregnancy, second trimester; Z3A.25 25 weeks gestation of pregnancy; O26.892 Other specified pregnancy related conditions, second trimester
CPT/HCPCS: 99284; 96361; 96374; 96375; 36415; 87086; 83690; 85025; 80053; 81001; J1200; J2765; J7030

== ENCOUNTER 2019-02-23 20:56 | Outpatient (CLI) | payer MEDICAID ==
[2019-02-23 21:39] LABS: AMORPHOUS SEDIMENT,URINE TRACE /HPF; APPEARANCE,URINE SLIGHTLY-CLOUDY; BILIRUBIN,URINE NEGATIVE (NEGATIVE); COLOR,URINE YELLOW; GLUCOSE, URINE NEGATIVE (NEGATIVE); KETONES,URINE NEGATIVE (NEGATIVE); LEUKOCYTE ESTERASE,URINE MODERATE (NEGATIVE); NITRITE,URINE NEGATIVE (NEGATIVE); PROTEIN,URINE NEGATIVE (NEGATIVE); URINE SPECIFIC GRAVITY 1.021; UROBILINOGEN,URINE NEGATIVE mg/dL (<2.0)
[2019-02-23 21:49] LABS: URINE AMPHETAMINES SCREEN NEGATIVE; URINE BARBITURATES SCREEN NEGATIVE; URINE BENZODIAZEPINES SCREEN NEGATIVE; URINE COCAINE SCREEN NEGATIVE; URINE MARIJUANA (THC) SCREEN NEGATIVE; URINE METHADONE SCREEN NEGATIVE; URINE PHENCYCLIDINE SCREEN NEGATIVE
[2019-02-23] MEDS ORDERED: FLUCONAZOLE 100 MG TABLET ONE (22:04)
[2019-02-24] MEDS ORDERED: FLUCONAZOLE 100 MG TABLET PO ONE (10:00)
== END 2019-02-23 22:59 | disposition home or self-care (01) ==
LOC: LC 20:56
PROVIDERS: ATTEND Student in an Organized Health Care Education/Training Program
PROC: 4A1HXCZ Monitoring of Products of Conception, Cardiac Rate, External Approach (ICD-10-PCS; principal; 2019-02-23)
DX: O98.813 Other maternal infectious and parasitic diseases complicating pregnancy, third trimester (principal); B37.9 Candidiasis, unspecified; Z3A.29 29 weeks gestation of pregnancy
CPT/HCPCS: 59899; 81001; 80307; 84112; J3490; 87086

== ENCOUNTER 2019-03-26 20:57 | Outpatient (CLI) | payer MEDICAID ==
[2019-03-26 21:36] LABS: APPEARANCE,URINE CLEAR; BILIRUBIN,URINE NEGATIVE (NEGATIVE); COLOR,URINE YELLOW; GLUCOSE, URINE NEGATIVE (NEGATIVE); KETONES,URINE 20 mg/dL (NEGATIVE); LEUKOCYTE ESTERASE,URINE SMALL (NEGATIVE); NITRITE,URINE NEGATIVE (NEGATIVE); PROTEIN,URINE NEGATIVE (NEGATIVE); URINE SPECIFIC GRAVITY 1.008; UROBILINOGEN,URINE NEGATIVE mg/dL (<2.0)
[2019-03-26 21:46] LABS: URINE AMPHETAMINES SCREEN NEGATIVE; URINE BARBITURATES SCREEN NEGATIVE; URINE BENZODIAZEPINES SCREEN NEGATIVE; URINE COCAINE SCREEN NEGATIVE; URINE MARIJUANA (THC) SCREEN NEGATIVE; URINE METHADONE SCREEN NEGATIVE; URINE PHENCYCLIDINE SCREEN NEGATIVE
[2019-03-26] MEDS ORDERED: BUTALB/ACETAMINOPHEN/CAFFEINE 1 TAB EACH PO ONE (21:47)
[2019-03-26] MEDS ORDERED: PROMETHAZINE HCL 25 MG TABLET PO ONE (21:47)
[2019-03-26] MEDS ORDERED: PROMETHAZINE HCL 25 MG TABLET ONE (21:52)
[2019-03-26] MEDS ORDERED: BUTALB/ACETAMINOPHEN/CAFFEINE 1 TAB EACH ONE (21:52)
== END 2019-03-26 22:50 | disposition home or self-care (01) ==
LOC: LC 20:57
PROVIDERS: ATTEND Obstetrics & Gynecology
PROC: 4A1HXCZ Monitoring of Products of Conception, Cardiac Rate, External Approach (ICD-10-PCS; principal; 2019-03-26)
DX: O26.893 Other specified pregnancy related conditions, third trimester (principal); R51 Headache; Z3A.33 33 weeks gestation of pregnancy
CPT/HCPCS: 59025; 81001; 80307; J3490 ×2

== ENCOUNTER 2019-04-03 10:37 | Outpatient (CLI) | payer MEDICAID ==
[2019-04-03 11:30] LABS: APPEARANCE,URINE CLOUDY; BILIRUBIN,URINE NEGATIVE (NEGATIVE); COLOR,URINE AMBER; GLUCOSE, URINE NEGATIVE (NEGATIVE); KETONES,URINE NEGATIVE (NEGATIVE); LEUKOCYTE ESTERASE,URINE MODERATE (NEGATIVE); NITRITE,URINE NEGATIVE (NEGATIVE); PROTEIN,URINE 30 mg/dL (NEGATIVE); URINE SPECIFIC GRAVITY 1.025
[2019-04-03 11:37] LABS: URINE AMPHETAMINES SCREEN NEGATIVE; URINE BENZODIAZEPINES SCREEN NEGATIVE; URINE COCAINE SCREEN NEGATIVE; URINE MARIJUANA (THC) SCREEN NEGATIVE; URINE METHADONE SCREEN NEGATIVE; URINE PHENCYCLIDINE SCREEN NEGATIVE
[2019-04-03 11:46] LABS: ABSOLUTE BASOPHILS # (AUTO) 0.1 10^3/uL (0.0-0.2); ABSOLUTE LYMPHOCYTES (AUTO) 1.8 10^3/uL (0.5-4.7); ABSOLUTE MONOCYTES (AUTO) 0.4 10^3/uL (0.1-1.4); ABSOLUTE NEUT (AUTO) 4.3 10^3/uL (1.7-8.2); BASOPHILS % (AUTO) 0.8 % (0-2); EOSINOPHILS % (AUTO) 0.8 % (0-6); HEMOGLOBIN 9.3 g/dL (12.0-15.5); LYMPHOCYTES % (AUTO) 26.8 % (13-45); MEAN CORPUSCULAR HEMOGLOBIN 24.6 pg (27.0-33.4); MEAN CORPUSCULAR HGB CONC 32.1 g/dL (32.0-36.0); MEAN CORPUSCULAR VOLUME 77 fl (80-97); MONOCYTES % (AUTO) 5.7 % (3-13); PLATELET COUNT 117 10^3/uL (150-450); RED BLOOD COUNT 3.79 10^6/uL (3.72-5.28); RED CELL DISTRIBUTION WIDTH 15.4 % (11.5-14.0); SEGMENTED NEUTROPHILS % (AUTO) 65.9 % (42-78); TOTAL CELLS COUNTED % (AUTO) 100 %; WHITE BLOOD COUNT 6.6 10^3/uL (4.0-10.5)
[2019-04-03 11:51] LABS: URINE CREATININE 303.3 mg/dL (16-327); URINE PROTEIN 5.7 mg/dL (<12)
[2019-04-03 12:09] LABS: ALBUMIN 2.9 g/dL (3.5-5.0); ALKALINE PHOSPHATASE 160 U/L (38-126); ANION GAP 8 (5-19); ASPARTATE AMINO TRANSFERASE 15 U/L (14-36); BILIRUBIN,DIRECT 0.1 mg/dL (0.0-0.4); BILIRUBIN,TOTAL 0.4 mg/dL (0.2-1.3); BLOOD UREA NITROGEN 3 mg/dL (7-20); CALCIUM 8.9 mg/dL (8.4-10.2); CARBON DIOXIDE 21 mmol/L (22-30); CHLORIDE 107 mmol/L (98-107); GLUCOSE 74 mg/dL (75-110); POTASSIUM 3.8 mmol/L (3.6-5.0); TOTAL PROTEIN 5.7 g/dL (6.3-8.2)
[2019-04-03 12:12] LABS: URINE BARBITURATES SCREEN UNCONFIRMED POSITIVE
== END 2019-04-03 12:56 | disposition home or self-care (01) ==
LOC: LC 10:37
PROVIDERS: ATTEND Obstetrics & Gynecology Gynecology
PROC: 4A1HXCZ Monitoring of Products of Conception, Cardiac Rate, External Approach (ICD-10-PCS; principal; 2019-04-03)
DX: O24.419 Gestational diabetes mellitus in pregnancy, unspecified control (principal); Z3A.35 35 weeks gestation of pregnancy
CPT/HCPCS: 36415; 59025; 80053; 80307; 81001; 82570; 83615; 84156; 84550; 85025

== ENCOUNTER 2019-04-06 16:14 | Outpatient (CLI) | payer MEDICAID ==
--- NOTE | 2019-04-06 16:29 | Non Stress Test Report ---
Non Stress Test Datetime Report Generated by CPN: 04/06/2019 16:29 DEMOGRAPHIC EGA NST: 35.0 EGA NST: 33.6 INDICATION Indication for Study (NST) Other: lc MONITORING Monitor Explained: Monitor Explained; Test Explained; Patient Verbalized Understanding Monitor Explained: Monitor Explained; Test Explained; Patient Verbalized Understanding Time on Monitor: 04/03/2019 11:18 Time on Monitor: 03/26/2019 21:26 Time off Monitor: 04/03/2019 12:39 Time off Monitor: 03/26/2019 21:56 NST Duration: 81 NST Duration: 30 NST INTERVENTIONS NST Interventions: PO Hydration NST Interventions: PO Hydration; Reposition Patient Physician Notified NST: DrAlice Logan Physician Notified NST: Dr Bentley BABY A: [id number] BABY A Movement : Present Contraction Frequency : 0 Contraction Frequency : 0 FHR Baseline : 125 FHR Baseline : 125 Accelerations : 15X15 Accelerations : 15X15 Decelerations : None Decelerations : None Variability : Moderate 6-25bpm Variability : Moderate 6-25bpm NST Review: Meets Criteria for Reactive NST NST Review: Meets Criteria for Reactive NST NST Review: Meets Criteria for Reactive NST NST Review and Verified By : Mary Torres RN NST Review and Verified By : Carlin Cruz RN NST Results: Reactive NST Results: Reactive NST Results: Reactive BABY B Movement: Present Movement: Present FHR Baseline: 130 FHR Baseline: 130 Accelerations: 15X15 Accelerations: 15X15 Decelerations: None Decelerations: None Variability: Moderate 6-25bpm Variability: Moderate 6-25bpm NST Review: Meets Criteria for Reactive NST NST Review: Meets Criteria for Reactive NST NST Reviewed And Verified By: Mary Torres RN NST Reviewed And Verified By: Carlin Cruz RN NST Results: Reactive NST Results: Reactive NST REPORT Report Trigger: Send Report
--- NOTE | 2019-04-06 18:37 | Non Stress Test Report ---
Non Stress Test Datetime Report Generated by CPN: 04/06/2019 18:37 DEMOGRAPHIC EGA NST: 35.3 INDICATION Indication for Study (NST) Other: Contractions VITAL SIGNS Temperature - NST: 97.9 MONITORING Monitor Explained: Monitor Explained; Test Explained; Patient Verbalized Understanding Time on Monitor: 04/06/2019 16:27 Time off Monitor: 04/06/2019 18:25 NST Duration: 118 NST INTERVENTIONS NST Interventions: None Physician Notified NST: D Slater MD BABY A Movement : Present Contraction Frequency : 2-3, irritibility FHR Baseline : 130 Accelerations : 15X15 Decelerations : None Variability : Moderate 6-25bpm NST Review: Meets Criteria for Reactive NST NST Review and Verified By : squinn NST Results: Reactive BABY B Movement: Present FHR Baseline: 145 Accelerations: 15X15 Decelerations: None Variability: Moderate 6-25bpm NST Review: Meets Criteria for Reactive NST NST Results: Reactive NST REPORT Report Trigger: Send Report
[2019-04-06 18:41] LABS: AMORPHOUS SEDIMENT,URINE TRACE /HPF; APPEARANCE,URINE CLOUDY; BILIRUBIN,URINE NEGATIVE (NEGATIVE); GLUCOSE, URINE NEGATIVE (NEGATIVE); KETONES,URINE TRACE mg/dL (NEGATIVE); LEUKOCYTE ESTERASE,URINE TRACE (NEGATIVE); NITRITE,URINE NEGATIVE (NEGATIVE); PROTEIN,URINE NEGATIVE (NEGATIVE); URINE SPECIFIC GRAVITY 1.017; UROBILINOGEN,URINE NEGATIVE mg/dL (<2.0)
[2019-04-06 18:44] LABS: COLOR,URINE YELLOW
[2019-04-06 19:03] LABS: URINE AMPHETAMINES SCREEN NEGATIVE; URINE BARBITURATES SCREEN NEGATIVE; URINE BENZODIAZEPINES SCREEN NEGATIVE; URINE COCAINE SCREEN NEGATIVE; URINE MARIJUANA (THC) SCREEN NEGATIVE; URINE METHADONE SCREEN NEGATIVE; URINE PHENCYCLIDINE SCREEN NEGATIVE
== END 2019-04-06 18:45 | disposition home or self-care (01) ==
LOC: LC 16:14
PROVIDERS: ATTEND Obstetrics & Gynecology
PROC: 4A1HXCZ Monitoring of Products of Conception, Cardiac Rate, External Approach (ICD-10-PCS; principal; 2019-04-06)
DX: O47.03 False labor before 37 completed weeks of gestation, third trimester (principal); O30.003 Twin pregnancy, unspecified number of placenta and unspecified number of amniotic sacs, third trimester; Z3A.35 35 weeks gestation of pregnancy
CPT/HCPCS: 80307; 81001

== ENCOUNTER 2019-04-08 09:26 | Inpatient (IN) | payer MEDICAID ==
[2019-04-08] MEDS ORDERED: CITRIC ACID/SODIUM CITRATE ORAL SOLN 15 ML UDCUP ONE (09:50)
[2019-04-08] MEDS ORDERED: CEFAZOLIN INJ 1 GM VIAL ONE (09:50)
[2019-04-08 10:06] LABS: ABSOLUTE LYMPHOCYTES (AUTO) 1.8 10^3/uL (0.5-4.7); ABSOLUTE MONOCYTES (AUTO) 0.4 10^3/uL (0.1-1.4); ABSOLUTE NEUT (AUTO) 5.1 10^3/uL (1.7-8.2); BASOPHILS % (AUTO) 0.6 % (0-2); EOSINOPHILS % (AUTO) 0.4 % (0-6); HEMATOCRIT 30.3 % (36.0-47.0); HEMOGLOBIN 9.8 g/dL (12.0-15.5); LYMPHOCYTES % (AUTO) 24.3 % (13-45); MEAN CORPUSCULAR HEMOGLOBIN 24.2 pg (27.0-33.4); MEAN CORPUSCULAR HGB CONC 32.4 g/dL (32.0-36.0); MEAN CORPUSCULAR VOLUME 75 fl (80-97); MONOCYTES % (AUTO) 5.9 % (3-13); PLATELET COUNT 156 10^3/uL (150-450); RED BLOOD COUNT 4.05 10^6/uL (3.72-5.28); RED CELL DISTRIBUTION WIDTH 15.7 % (11.5-14.0); SEGMENTED NEUTROPHILS % (AUTO) 68.8 % (42-78); TOTAL CELLS COUNTED % (AUTO) 100 %; WHITE BLOOD COUNT 7.4 10^3/uL (4.0-10.5)
--- NOTE | 2019-04-08 10:27 | Admission Physical ---
Datetime Report Generated by CPN: 04/08/2019 10:27 CURRENT ADMISSION Chief Complaint: Uterine Contractions; Suspected Ruptured Membranes Indication for Induction: Not Applicable Admit Impression : , Intrauterine ; Ruptured Membranes Admit Plan: Admit to Unit ALLERGIES Medication Allergies: No Medication Allergies: No Known Allergies (04/29/2018) Latex: No Latex Allergies Food Allergies: no Environmental Allergies: no OBSTETRICAL HISTORY EDC: 05/08/2019 00:00 : 2 Para: 1 Term: 1 : 0 SAB: 0 IAB: 0 Ectopic: 0 Livin Cesareans: 0 VBACs: 0 Multiple Births: 0 Gestational Diabetes: No Rh Sensitization: No Incompetent Cervix: No LOUIS: No Infertility: No ART Treatment: No Uterine Anomaly: No IUGR: No Hx Previous C/S: No Macrosomia: No Hx Loss/Stillborn: No PIH: No Hx : No Placenta Previa/Abruption: No Depression/PP Depression: No PTL/PROM: No Post Hemorrhage: No Current Procedures: Ultrasound Obstetrical History Comments: 05/01/2018-vaginal full term G 2-Current SEE RECORDS Alcohol: No Marijuana : No Cocaine: No Other Illicit Drugs: No Cigarettes: Never Smoker. 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: No Heart Disease: No Hosp/Surgery: No Autoimmune Disorder: No Anesthetic Complications: No Kidney Disease: No Abnormal Pap Smear: No Neuro/Epilepsy: No Psychiatric Disorders: No Other Medical Diseases: No Hepatitis/Liver Disease: No Significant Family History: No Varicosities/Phlebitis: No Thyroid Dysfunction: No INFECTIOUS HISTORY Gonorrhea: No Genital Herpes: No Chlamydia: No Tuberculosis: No Syphilis: No Hepatitis: No HIV/AIDS Exposure: No Rash or Viral Illness: No HPV: No PHYSICAL EXAM General: Normal HEENT: Normal Neurologic: Normal Thyroid: Normal Heart: Normal Lungs: Normal Breast: Deferred Back: Normal Abdomen: Normal Genitourinary Exam: Normal Extremities: Normal DTRs: Normal Pelvic Type: Adequate Vital Signs: Reviewed VAGINAL EXAM Dilatation: 3 Station: -3 MEMBRANES Pooling: Positive Membranes: Ruptured FETUS A EGA: 35.5 Monitoring: External US FHR- Baseline: 120 Presentation: Vertex Admit Comment: twins FETUS B Monitoring: External US PLANS FOR LABOR AND DELIVERY Labor and Delivery: None Pain Management: Spinal Feeding Preference: Formula Benefit of Breast Feed Discussed: Yes Circumcision: N/A INFORMED CONSENT Signature: with User ID: [email or web address]
[2019-04-08] MEDS ORDERED: SIMETHICONE 80 MG TAB.CHEW PO PRN (10:29)
[2019-04-08] MEDS ORDERED: PROMETHAZINE HCL INJ 25 MG/1 ML VIAL IV PRN ×3 (10:29→12:00)
[2019-04-08] MEDS ORDERED: MEASLES,MUMPS&RUBELLA VACC/PF 0.5 ML VIAL SUBCUT PRN (10:29)
[2019-04-08] MEDS ORDERED: RINGERS SOLUTION,LACTATED 1,000 ML IV PRN (10:29)
[2019-04-08] MEDS ORDERED: DIPH/PERTUSS(ACELL)/TETANUS VAC/PF 0.5 ML SYR (>=10YO) IM PRN (10:29)
[2019-04-08] MEDS ORDERED: HYDROMORPHONE HCL INJ/PF 2 MG/ML AMPULE IV PRN (10:29)
[2019-04-08] MEDS ORDERED: OXYCODONE-ACETAMINOPHEN 5-325 MG TABLET PO PRN ×3 (10:29→12:00)
[2019-04-08] MEDS ORDERED: ACETAMINOPHEN 1,000 MG/100 ML RTUPB IV PRN (10:29)
[2019-04-08] MEDS ORDERED: ACETAMINOPHEN 325 MG TABLET PO PRN (10:29)
[2019-04-08] MEDS ORDERED: OXYTOCIN/NORMAL SALINE 20 UNIT/1,000 ML RTUINJ IV PRN (10:29)
[2019-04-08] MEDS ORDERED: OXYTOCIN 10 UNIT/ML VIAL ONE (10:50)
[2019-04-08] MEDS ORDERED: MIDAZOLAM 2 MG/2 ML INJ ONE (10:51)
[2019-04-08] MEDS ORDERED: ACETAMINOPHEN 1,000 MG/100 ML RTUPB IV ONE (10:51)
[2019-04-08] MEDS ORDERED: METHYLERGONOVINE MALEATE INJ/PF 0.2 MG/1 ML AMPULE ONE (10:51)
[2019-04-08] MEDS ORDERED: ONDANSETRON HCL INJ/PF 4 MG/2 ML SDV ONE (10:51)
[2019-04-08] MEDS ORDERED: EPHEDRINE SULFATE INJ 50 MG/1 ML AMPULE ONE (10:51)
[2019-04-08] MEDS ORDERED: KETOROLAC TROMETHAMINE INJ/PF 30 MG/1 ML SDV ONE ×2 (10:51→20:03)
[2019-04-08] MEDS ORDERED: FENTANYL CITRATE INJ/PF 100 MCG/2 ML AMPUL ONE (10:51)
[2019-04-08] MEDS ORDERED: FENTANYL CITRATE INJ/PF 100 MCG/2 ML AMPUL IV PRN ×3 (12:00)
[2019-04-08] MEDS ORDERED: DIPHENHYDRAMINE HCL 50 MG/ML VIAL IV PRN (12:00)
[2019-04-08] MEDS ORDERED: MORPHINE SULFATE 10 MG/ML INJ IV PRN (12:00)
[2019-04-08] MEDS ORDERED: MEPERIDINE HCL/PF INJ 25 MG/1 ML DISP.SYRIN IV PRN (12:00)
[2019-04-08] MEDS ORDERED: ONDANSETRON HCL INJ/PF 4 MG/2 ML SDV IV PRN (12:00)
--- NOTE | 2019-04-08 12:25 | Operative Report ---
Operative Report DATE OF SURGERY: 04/08/19 PREOPERATIVE DIAGNOSIS: Patient has a scheduled primary for twins and desires a tubal ligation and now has presented with ruptured membranes. POSTOPERATIVE DIAGNOSIS: Same OPERATION: Primary via low transverse uterine incision and tubal ligation with Filshie clips bilaterally SURGEON: DAVID CONWAY ANESTHESIA: Spinal TISSUE REMOVED OR ALTERED: Placenta COMPLICATIONS: None ESTIMATED BLOOD LOSS: 250 cc INTRAOPERATIVE FINDINGS: 2 viable infants noted. Normal uterus tubes and ovaries. PROCEDURE: Patient was taken to the OR and placed in supine position after her spinal anesthesia. She is prepared and draped in sterile fashion. Boothe was placed for drainage of the bladder. Low transverse incision was made and carried down the level of the fascia. The fascial incision was made with knife and extended bilaterally with curved Quinteros scissors. The fascia was off the rectus muscles using sharp and blunt dissection. The rectus muscles are in the midline. The peritoneum was entered without incident. Bladder blade was placed in uterine segment was identified. A low transverse incision was made creating a bladder flap. Bladder blade was placed low transverse uterine incision was made with the knife and extended with fingertips. Baby A was delivered vertex with some fundal pressure. Mouth and nose were suctioned free. The cord is doubly clamped and cut. Baby A was passed off to the heavy duty mechanic in attendance. Next membranes were ruptured and baby B was delivered vertex as well. The placenta was manually extracted with trailing membranes. The uterus was externalized wrapped in a moist lap sponge. Uterine contents wiped free. Uterus was closed with a running locking layer of 0 chromic suture using the second layer to imbricate the first completing a double layer closure of the u terus. The serosa was closed with a running 2-0 chromic stitch. The tubal ligation was carried out by placing Filshie clips at the mid isthmic portion of each fallopian tube bilaterally. The pelvis was irrigated and suctioned free of fluid the uterus was replaced in the abdomen. The abdominal wall peritoneum was closed with running 2-0 chromic stitch. Fascia was closed with a running 0 Vicryl in 2 segments. Yogi's layer was brought together with 0 plain gut stitch and the skin was closed with running subcuticular 4-0 undyed Vicryl stitch. The wound was dressed mother and baby did well.
[2019-04-08 13:34] LABS: AMORPHOUS SEDIMENT,URINE TRACE /HPF; APPEARANCE,URINE CLOUDY; BILIRUBIN,URINE NEGATIVE (NEGATIVE); COLOR,URINE AMBER; GLUCOSE, URINE NEGATIVE (NEGATIVE); KETONES,URINE TRACE mg/dL (NEGATIVE); LEUKOCYTE ESTERASE,URINE NEGATIVE (NEGATIVE); NITRITE,URINE NEGATIVE (NEGATIVE); PROTEIN,URINE 100 mg/dL (NEGATIVE); URINE SPECIFIC GRAVITY 1.041
[2019-04-08 13:45] LABS: URINE AMPHETAMINES SCREEN NEGATIVE; URINE BARBITURATES SCREEN NEGATIVE; URINE BENZODIAZEPINES SCREEN NEGATIVE; URINE COCAINE SCREEN NEGATIVE; URINE MARIJUANA (THC) SCREEN NEGATIVE; URINE METHADONE SCREEN NEGATIVE; URINE PHENCYCLIDINE SCREEN NEGATIVE
[2019-04-08] MEDS ORDERED: HYDROMORPHONE HCL INJ/PF 2 MG/ML AMPULE ONE (13:52)
[2019-04-08] MEDS ORDERED: KETOROLAC TROMETHAMINE INJ/PF 30 MG/1 ML SDV IV SCH ×2 (14:00→22:00)
[2019-04-08] MEDS: IBUPROFEN 800 MG TABLET PO SCH ×2 (15:51→18:33)
[2019-04-08] MEDS: OXYCODONE-ACETAMINOPHEN 5-325 MG TABLET PO PRN ×2 (16:32→22:50)
[2019-04-08] MEDS: DOCUSATE SODIUM 100 MG CAPSULE PO SCH (18:33)
[2019-04-08] MEDS: KETOROLAC TROMETHAMINE INJ/PF 30 MG/1 ML SDV IV SCH (22:54)
[2019-04-09] MEDS: OXYCODONE-ACETAMINOPHEN 5-325 MG TABLET PO PRN ×2 (02:54→11:17)
[2019-04-09] MEDS: KETOROLAC TROMETHAMINE INJ/PF 30 MG/1 ML SDV IV SCH (05:02)
[2019-04-09 07:16] LABS: HEMATOCRIT 24.2 % (36.0-47.0); MEAN CORPUSCULAR HEMOGLOBIN 24.2 pg (27.0-33.4); MEAN CORPUSCULAR HGB CONC 32.2 g/dL (32.0-36.0); MEAN CORPUSCULAR VOLUME 75 fl (80-97); PLATELET COUNT 105 10^3/uL (150-450); RED BLOOD COUNT 3.23 10^6/uL (3.72-5.28); RED CELL DISTRIBUTION WIDTH 15.5 % (11.5-14.0); WHITE BLOOD COUNT 7.5 10^3/uL (4.0-10.5)
[2019-04-09 07:28] LABS: HEMOGLOBIN 7.8 g/dL (12.0-15.5)
[2019-04-09] MEDS ORDERED: CALCIUM CARBONATE 500 MG TAB.CHEW PO PRN (09:06)
--- NOTE | 2019-04-09 10:50 | PDOC PROGRESS REPORT ---
Subjective-OB Progress Note for:: 04/09/19 Subjective: Pt doing well, no concerns. She reports good pain control, reg diet, +flatus and voiding without difficulty. Physical Exam (OB) Vital Signs: Temp Pulse Resp BP Pulse Ox 97.4 F 85 16 102/58 L 100 04/09/19 07:35 04/09/19 07:35 04/09/19 07:35 04/09/19 07:35 04/09/19 07:35 Intake & Output 04/08/19 04/09/19 04/10/19 06:59 06:59 06:59 Intake Total 1250 Output Total 1500 Balance -250 Weight 112 kg - PIH/Pre-Eclampsia Headache: Absent Epigastric Pain: No Visual Changes: No - Dressing Removed: No - scant drainage Incision: Well Approximated Closure Type: opsite - Lochia Lochia Amount: Small 10-25 ml Lochia Color: Rubra/Red - Abdomen Description: Tender, Round Hernia Present: No Fundal Description: Firm, Midline Fundal Height: u/3 - u/4 Objective-Diagnostic Laboratory: 04/09/19 06:46 04/08/19 04/08/19 04/09/19 09:58 12:58 06:46 WBC 7.5 RBC 3.23 L Hgb 7.8 L Hct 24.2 L MCV 75 L MCH 24.2 L MCHC 32.2 RDW 15.5 H Plt Count 105 L Urine Color GENARO Urine Appearance CLOUDY Urine pH 5.0 Ur Specific [place] 1.041 Urine Protein 100 H Urine Glucose (UA) NEGATIVE Urine Ketones TRACE H Urine Blood SMALL H Urine Nitrite NEGATIVE Ur Leukocyte Esterase NEGATIVE Urine RBC (Auto) 23 Blood Type A POSITIVE Antibody Screen NEGATIVE Assessment and Plan(PN) - Assessment and Plan (1) Twin , delivered by section, current hospitalization Is this a current diagnosis for this admission?: Yes (2) Chronic hypertension affecting Is this a current diagnosis for this admission?: Yes (3) premature rupture of membranes (PPROM) delivered, current hospitalization Is this a current diagnosis for this admission?: Yes - Time Spent with Patient Time with patient: Less than 15 minutes Medications reviewed and adjusted accordingly: Yes - Disposition Anticipated Discharge: Home Within: within 24 hours
[2019-04-09] MEDS: DOCUSATE SODIUM 100 MG CAPSULE PO SCH ×2 (11:15→17:22)
[2019-04-09] MEDS: PRENATAL VITAMIN W DHA CAPSULE PO SCH (11:15)
[2019-04-09] MEDS: ASCORBIC ACID 500 MG TABLET PO SCH ×2 (11:15→17:22)
[2019-04-09] MEDS: FERROUS SULFATE 325 MG TABLET PO SCH ×2 (11:15→17:22)
[2019-04-09] MEDS: FAMOTIDINE 20 MG TABLET PO SCH (11:15)
[2019-04-09] MEDS: IBUPROFEN 800 MG TABLET PO SCH ×3 (11:15→23:12)
[2019-04-09] MEDS ORDERED: ZOLPIDEM TARTRATE 5 MG TABLET PO PRN (23:45)
[2019-04-10] MEDS: OXYCODONE-ACETAMINOPHEN 5-325 MG TABLET PO PRN ×2 (04:47→14:42)
[2019-04-10] MEDS: IBUPROFEN 800 MG TABLET PO SCH ×3 (05:48→14:42)
[2019-04-10 08:09] VITALS: BP 123/70
--- NOTE | 2019-04-10 09:44 | PDOC PROGRESS REPORT ---
Subjective-OB Progress Note for:: 04/10/19 Subjective: Doing well, no c/o, babies in room, ready to go home, unsure if babies can go, eating well, scant lochia, pain under control Physical Exam (OB) Vital Signs: Temp Pulse Resp BP Pulse Ox 97.7 F 102 H 14 119/67 99 04/10/19 07:17 04/10/19 07:17 04/10/19 07:17 04/10/19 07:17 04/10/19 07:17 Intake & Output 04/09/19 04/10/19 04/11/19 06:59 06:59 06:59 Intake Total 1250 Output Total 1500 Balance -250 Weight 112 kg - PIH/Pre-Eclampsia Headache: Absent Epigastric Pain: No Visual Changes: No - Dressing Removed: Yes Incision: Dressing Closure Type: opsite - Lochia Lochia Amount: Scant < 10 ml Lochia Color: Rubra/Red - Abdomen Description: Soft, Round Hernia Present: No Fundal Description: Firm, Midline Fundal Height: u/u - u/2 Objective-Diagnostic Laboratory: 04/09/19 06:46 Assessment and Plan(PN) - Assessment and Plan (1) Twin , delivered by section, current hospitalization Is this a current diagnosis for this admission?: Yes (2) premature rupture of membranes (PPROM) delivered, current hospitalization Is this a current diagnosis for this admission?: Yes (3) Chronic hypertension affecting Is this a current diagnosis for this admission?: Yes - Time Spent with Patient Time with patient: Less than 15 minutes Medications reviewed and adjusted accordingly: Yes - Disposition Anticipated Discharge: Home Within: within 24 hours
--- NOTE | 2019-04-10 09:49 | PDOC DISCHARGE SUMMARY ---
Impression - Admit/DC Date/PCP Admission Date/Primary Care Provider: 04/08/19 09:41 DAVID CONWAY MD Discharge Date: 04/10/19 - Discharge Diagnosis (1) Twin , delivered by section, current hospitalization Is this a current diagnosis for this admission?: Yes (2) premature rupture of membranes (PPROM) delivered, current hospitalization Is this a current diagnosis for this admission?: Yes (3) Chronic hypertension affecting Is this a current diagnosis for this admission?: Yes - Additional Information Discharge Diet: As Tolerated, Regular Discharge Activity: Activity As Tolerated, No Driving, No Lifting Over 10 Pounds, No Lifting/Push/Pulling, Pelvic Rest Referrals: DAVID CONWAY MD [Primary Care Provider] - (RTC 1 week) Prescriptions: Oxycodone HCl/Acetaminophen [Percocet 5-325 mg Tablet] 1 tab PO Q4HP PRN #20 tablet PRN Reason: Ibuprofen [Motrin 800 mg Tablet] 800 mg PO Q6 #60 tablet Home Medications: Pnv No.95/Ferrous Fum/Folic AC [ Vitamin Tablet] 1 tab PO DAILY 03/31/18 Ferrous Sulfate [Feosol 325 mg Tablet] 325 mg PO BID tablet 04/10/19 Ibuprofen [Motrin 800 mg Tablet] 800 mg PO Q6 #60 tablet 04/10/19 Oxycodone HCl/Acetaminophen [Percocet 5-325 mg Tablet] 1 tab PO Q4HP PRN #20 tablet 04/10/19 HPI Gestational Age: 35.5 Reason(s) for Admission: PROM Procedures: NST, Ultrasound Intrapartum Procedure(s): : Low Cervical, Transverse Hospital Course Hospital Course: routine post op Results Laboratory Results: WBC 7.5 10^3/uL (4.0-10.5) 04/09/19 06:46 RBC 3.23 10^6/uL (3.72-5.28) L 04/09/19 06:46 Hgb 7.8 g/dL (12.0-15.5) L 04/09/19 06:46 Hct 24.2 % (36.0-47.0) L 04/09/19 06:46 MCV 75 fl (80-97) L 04/09/19 06:46 MCH 24.2 pg (27.0-33.4) L 04/09/19 06:46 MCHC 32.2 g/dL (32.0-36.0) 04/09/19 06:46 RDW 15.5 % (11.5-14.0) H 04/09/19 06:46 Plt Count 105 10^3/uL (150-450) L 04/09/19 06:46 Lymph % (Auto) 24.3 % (13-45) 04/08/19 09:58 [place] % (Auto) 5.9 % (3-13) 04/08/19 09:58 Eos % (Auto) 0.4 % (0-6) 04/08/19 09:58 Baso % (Auto) 0.6 % (0-2) 04/08/19 09:58 Absolute Neuts (auto) 5.1 10^3/uL (1.7-8.2) 04/08/19 09:58 Absolute Lymphs (auto) 1.8 10^3/uL (0.5-4.7) 04/08/19 09:58 Absolute Monos (auto) 0.4 10^3/uL (0.1-1.4) 04/08/19 09:58 Absolute Eos (auto) 0.0 10^3/uL (0.0-0.6) 04/08/19 09:58 Absolute Basos (auto) 0.0 10^3/uL (0.0-0.2) 04/08/19 09:58 Seg Neutrophils % 68.8 % (42-78) 04/08/19 09:58 Urine Color GENARO 04/08/19 12:58 Urine Appearance CLOUDY 04/08/19 12:58 Urine pH 5.0 (5.0-9.0) 04/08/19 12:58 Ur Specific [place] 1.041 04/08/19 12:58 Urine Protein 100 mg/dL (NEGATIVE) H 04/08/19 12:58 Urine Glucose (UA) NEGATIVE mg/dL (NEGATIVE) 04/08/19 12:58 Urine Ketones TRACE mg/dL (NEGATIVE) H 04/08/19 12:58 Urine Blood SMALL (NEGATIVE) H 04/08/19 12:58 Urine Nitrite NEGATIVE (NEGATIVE) 04/08/19 12:58 Urine Bilirubin NEGATIVE (NEGATIVE) 04/08/19 12:58 Urine Urobilinogen 2.0 mg/dL (<2.0) H 04/08/19 12:58 Ur Leukocyte Esterase NEGATIVE (NEGATIVE) 04/08/19 12:58 Urine RBC (Auto) 23 /HPF 04/08/19 12:58 Urine Bacteria (Auto) TRACE /HPF 04/08/19 12:58 Squamous Epi Cells Auto 5 /HPF 04/08/19 12:58 U Non-Squamous Epis Auto 2 /HPF 04/08/19 12:58 Amorphous Sediment Auto TRACE /HPF 04/08/19 12:58 Urine Mucus (Auto) RARE /LPF 04/08/19 12:58 Urine Ascorbic Acid NEGATIVE (NEGATIVE) 04/08/19 12:58 Urine Opiates Screen NEGATIVE 04/08/19 12:58 Urine Methadone Screen NEGATIVE 04/08/19 12:58 Ur Barbiturates Screen NEGATIVE 04/08/19 12:58 Ur Phencyclidine Scrn NEGATIVE 04/08/19 12:58 Ur Amphetamines Screen NEGATIVE 04/08/19 12:58 U Benzodiazepines Scrn NEGATIVE 04/08/19 12:58 Urine Cocaine Screen NEGATIVE 04/08/19 12:58 U Marijuana (THC) Screen NEGATIVE 04/08/19 12:58 Blood Type A POSITIVE 04/08/19 09:58 Antibody Screen NEGATIVE 04/08/19 09:58 Plan Health Concerns: hx of depression, anemia Plan of Treatment: home, f/U Wednesday or Wednesday, rev S&S to report Goals: no complications Time Spent: Less than 30 Minutes
[2019-04-10] MEDS: PRENATAL VITAMIN W DHA CAPSULE PO SCH (10:18)
[2019-04-10] MEDS: DOCUSATE SODIUM 100 MG CAPSULE PO SCH (10:19)
[2019-04-10] MEDS: FAMOTIDINE 20 MG TABLET PO SCH (10:19)
[2019-04-10] MEDS: FERROUS SULFATE 325 MG TABLET PO SCH (10:19)
[2019-04-10] MEDS: ASCORBIC ACID 500 MG TABLET PO SCH (10:19)
[2019-04-10] MEDS ORDERED: INFLUENZA QUAD (6MOS+) 2019-20 VAC 0.5 ML SYR IM ONE (11:11)
--- NOTE | 2019-04-11 13:57 | Delivery Summary ---
Del Sum A-C Datetime Report Generated by CPN: 04/11/2019 13:57 DELIVERY PERSONNEL DELIVERY PERSONNEL: [id number] Delivery Doctor:: Kash Slater MD Anesthesiologist:: Fanny Conti MD ETHNOLOGY PROFESSOR:: Katherine Duran CRNA Embossograph Operator:: Jennifer Meadows RN Neonatal Nurse Practitioner:: CALEB Benz Nursery Nurse:: Bertha Polk RN Nursery Nurse:: Claudia Al RN Ammonia Operator/RUBY ON RAILS ENGINEER: Susanna Murray CST Ammonia Operator/RUBY ON RAILS ENGINEER: Sally Moncada, ST MATERNAL INFORMATION Delivery Anesthesia: Spinal Medications After Delivery: Pitocin Drip 20 Units/1000ml NSS Delivery QBL: 403 Maternal Complications: None LABOR SUMMARY EDC: 05/08/2019 00:00 No. Babies in Womb: 2 No. Babies in Womb: 1 Attempted: No LABOR INFORMATION Reason for Induction: Not Applicable Onset of Labor: 04/08/2019 09:15 Oxytocin: N/A Group B Beta Strep: unknown Steroids Given: None Reason Steroids Not Administered: Imminent Delivery MEMBRANES Membranes Rupture Method: Spontaneous Rupture of Membranes: 04/08/2019 09:15 Length of Rupture (hr): 2.53 Amniotic Fluid Color: Clear Amniotic Fluid Amount: Large Amniotic Fluid Odor: None STAGES OF LABOR Stage 3 hr: 0 Stage 3 min: 3 Total Time in Labor hr: 2 Total Time in Labor min: 35 VAGINAL DELIVERY Episiotomy: None Laceration #1: None Laceration Extension #1: N/A Sponge Count Correct: N/A Sharps Count Correct: N/A CSECTION DELIVERY Primary Indication: Other Other Primary Indication: Primary Elective Secondary Indication: Multiple Gestation CSection Urgency: Non-Scheduled CSection Incidence: Primary Labor: Labor Elective: Elective CSection Incision: Lower Uterine Transverse Sterilization Procedure: Ring and Clip BABY A INFORMATION Delivery Date/Time: 04/08/2019 11:47 Method of Delivery: Born in Route : No : N/A Forceps: N/A Vacuum Extraction: N/A Shoulder Dystocia : No PRESENTATION/POSITION BABY A Presentation: Cephalic Cephalic Presentation: Vertex Breech Presentation: N/A PLACENTA INFORMATION BABY A Placenta Delivery Time : 04/08/2019 11:50 Placenta Method of Delivery: Manual Removal Placenta Status: Delivered SCORES BABY A Heart Rate 1 min: >100 bpm Resp Effort 1 min: Good Cry Reflex Irritability 1 min: Cough or Sneeze or Pulls Away Muscle Tone 1 min: Active Motion Color 1 min: Body [place], Extremities Blue SCORE 1 MIN: 9 Heart Rate 5 min: >100 bpm Resp Effort 5 min: Good Cry Reflex Irritability 5 min: Cough or Sneeze or Pulls Away Muscle Tone 5 min: Active Motion Color 5 min: Body [place], Extremities Blue SCORE 5 MIN: 9 INFORMATION BABY A Gestational Age at Delivery: 35.5 Gestational Status: Late - 34- 36.6 Weeks Infant Outcome : Liveborn Infant Condition : Stable Infant Sex: Female IDENTIFICATION BABY A Infant Verification Date/Time: 04/08/2019 12:08 ID Band Number: [id number] Mother's Name Verified: Yes RN Verifying : Kia Meadows RN , Latoya Terrazas RN WEIGHT/LENGTH BABY A Birthweight (gm): 2670 Infant Weight (lb): 5 Infant Weight (oz): 14 Infant Length (in): 18.75 Infant Length (cm): 47.63 CORD INFORMATION BABY A No. Cord Vessels: 3 Nuchal Cord : N/A Cord Blood Taken: Yes-For Storage (Mom's Blood type +) Suction: Mouth; Nose BABY B INFORMATION Delivery Date/Time: 04/08/2019 11:48 Method of Delivery : Born in Route : No : N/A Forceps : N/A Vacuum Extraction: N/A SHOULDER DYSTOCIA BABY B Infant Delivery Date/Time: 04/08/2019 11:48 PRESENTATION/POSITION BABY B Presentation : Cephalic Cephalic Position : Vertex Breech Position: N/A ROM/PLACENTA INFO BABY B Placenta Delivery Time : 04/08/2019 11:50 Placenta Method of Delivery: Manual Removal Placental Status : Delivered SCORES BABY B Heart Rate 1 min: >100 bpm Resp Effort 1 min: Good Cry Reflex Irritability 1 min: Cough or Sneeze or Pulls Away Muscle Tone 1 min: Active Motion Color 1 min: Body [place], Extremities Blue SCORE 1 MIN: 9 Heart Rate 5 min: >100 bpm Resp Effort 5 min: Good Cry Reflex Irritability 5 min: Cough or Sneeze or Pulls Away Muscle Tone 5 min: Active Motion Color 5 min: Body [place], Extremities Blue SCORE 5 MIN: 9 INFANT INFORMATION BABY B Gestational Age at Delivery: 35.5 Gestational Status : Late - 34- 36.6 Weeks Infant Outcome : Liveborn Condition : Stable Sex : Female IDENTIFICATION BABY B Verification Date/Time: 04/08/2019 12:11 ID Band Number : [id number] Mother's Name Verified: Yes RN Verifying : Kia Meadows RN, T. Mk RN WEIGHT/LENGTH BABY B Infant Birthweight (gm): 2395 Infant Weight (lb) : 5 Infant Weight (oz): 4 Length (in): 18.50 Infant Length (cm): 46.99 CORD INFORMATION BABY B No. Cord Vessels : 3 Nuchal Cord : N/A Cord Blood Taken : Yes-For Storage (Mom's Blood Type +) Infant Suction : Mouth; Nose
== END 2019-04-10 17:58 | disposition home or self-care (01) | DRG 785 ==
LOC: LC 09:26 → LR 09:41 → 2S 14:35
PROVIDERS: ADMIT Obstetrics & Gynecology; ATTEND Obstetrics & Gynecology
PROC: 10D00Z1 Extraction of Products of Conception, Low, Open Approach (ICD-10-PCS; principal; 2019-04-08)
PROC: 0UL70CZ Occlusion of Bilateral Fallopian Tubes with Extraluminal Device, Open Approach (ICD-10-PCS; 2019-04-08)
PROC: 3E0234Z Introduction of Serum, Toxoid and Vaccine into Muscle, Percutaneous Approach (ICD-10-PCS; 2019-04-10)
PROC: 3E0234Z Introduction of Serum, Toxoid and Vaccine into Muscle, Percutaneous Approach (ICD-10-PCS; 2019-04-10)
DX: O42.913 Preterm premature rupture of membranes, unspecified as to length of time between rupture and onset of labor, third trimester (principal); O30.003 Twin pregnancy, unspecified number of placenta and unspecified number of amniotic sacs, third trimester; Z3A.35 35 weeks gestation of pregnancy; Z37.2 Twins, both liveborn; Z30.2 Encounter for sterilization; O16.4 Unspecified maternal hypertension, complicating childbirth; Z23 Encounter for immunization
CPT/HCPCS: 1961; 36415; 80307; 81001; 85025; 85027; 86592; 86850; 86900; 86901; 88307; 90686; 90707; 90715; 94799; J0131; J0690; J1170; J1885; J2210; J2250; J2405; J2590; J3010; J3490

== ENCOUNTER 2019-04-15 17:57 | Emergency (ER) | payer MEDICAID ==
[2019-04-15 18:03] VITALS: BP 146/93
--- NOTE | 2019-04-15 18:26 | ER Document Report ---
ED Medical Screen (RME) - General Stated Complaint: VAGINAL SWELLING Time Seen by Provider: 04/15/19 18:19 Primary Care Provider: DAVID CONWAY MD [Primary Care Provider] - Follow up as needed Mode of Arrival: Ambulatory Information source: Patient Notes: This 19-year-old female proximally 2 weeks ago presents the emergency department with complaints of swelling from her rectal area down to her vaginal area. Reports she was going to the bathroom felt a pop and now she is swollen and red. She reports it does not hurt. She reports no fever vomiting diarrhea. Denies history of MRSA. I have greeted and performed a rapid initial assessment of this patient. A comprehensive ED assessment and evaluation of the patient, analysis of test results and completion of the medical decision making process will be conducted by additional ED providers. Dictation of this chart was performed using voice recognition software; therefore, there may be some unintended grammatical errors. TRAVEL OUTSIDE OF THE [place] IN LAST 30 DAYS: No - Related Data Allergies/Adverse Reactions: No Known Allergies Allergy (Verified 04/15/19 18:18) Physical Exam - Vital signs Vitals: Temp Pulse Resp BP Pulse Ox 97.6 F 94 18 146/93 H 100 04/15/19 18:03 04/15/19 18:03 04/15/19 18:03 04/15/19 18:03 04/15/19 18:03 Course - Vital Signs Vital signs: Temp Pulse Resp BP Pulse Ox 97.6 F 94 18 146/93 H 100 04/15/19 18:03 04/15/19 18:03 04/15/19 18:03 04/15/19 18:03 04/15/19 18:03 Doctor's Discharge - Discharge Referrals: DAVID CONWAY MD [Primary Care Provider] - Follow up as needed
[2019-04-15 19:06] LABS: APPEARANCE,URINE CLEAR; BILIRUBIN,URINE NEGATIVE (NEGATIVE); COLOR,URINE YELLOW; GLUCOSE, URINE NEGATIVE (NEGATIVE); KETONES,URINE NEGATIVE (NEGATIVE); LEUKOCYTE ESTERASE,URINE MODERATE (NEGATIVE); NITRITE,URINE NEGATIVE (NEGATIVE); PROTEIN,URINE 30 mg/dL (NEGATIVE); URINE SPECIFIC GRAVITY 1.018; UROBILINOGEN,URINE NEGATIVE mg/dL (<2.0)
--- NOTE | 2019-04-15 23:04 | ER Document Report ---
ED General - General Chief Complaint: Vaginal Pain Stated Complaint: VAGINAL SWELLING Time Seen by Provider: 04/15/19 18:19 Primary Care Provider: DAVID CONWAY MD [Primary Care Provider] - Follow up in 3-5 days Mode of Arrival: Ambulatory Notes: 19-year-old female presents with swelling to the perineum area that occurred earlier today while she was using the bathroom. Patient had a for delivery of twins last Wednesday. Patient states she was straining due to constipation and felt a swelling to her perineum. Patient denies any pain, pus discharge, or fevers. Patient states she is still bleeding from her . Patient has a follow-up appointment with her [facility] on Wednesday (in 2 days). TRAVEL OUTSIDE OF THE [place] IN LAST 30 DAYS: No - Related Data Allergies/Adverse Reactions: No Known Allergies Allergy (Verified 04/15/19 18:18) Past Medical History - General Information source: Patient - Social History Smoking Status: Unknown if Ever Smoked Family History: Reviewed & Not Pertinent Patient has suicidal ideation: No Patient has homicidal ideation: No Review of Systems - Review of Systems Notes: Constitutional: Negative for fever. HENT: Negative for sore throat. Eyes: Negative for visual changes. Cardiovascular: Negative for chest pain. Respiratory: Negative for shortness of breath. Gastrointestinal: Negative for abdominal pain, vomiting or diarrhea. Genitourinary: Positive for swelling to perineum. Negative for dysuria. Musculoskeletal: Negative for back pain. Skin: Negative for rash. Neurological: Negative for headaches, weakness or numbness. 10 point ROS negative except as marked above and in HPI. Physical Exam - Vital signs Vitals: Temp Pulse Resp BP Pulse Ox 97.6 F 94 18 146/93 H 100 04/15/19 18:03 04/15/19 18:03 04/15/19 18:03 04/15/19 18:03 04/15/19 18:03 - Notes Notes: GENERAL: Well-appearing, well-nourished and in no acute distress. HEAD: Atraumatic, normocephalic. EYES: Extraocular movements intact, sclera anicteric, conjunctiva are normal. NECK: Normal range of motion, supple without lymphadenopathy or JVD. ABDOMEN: Soft, nontender. No guarding, no rebound. No masses appreciated. : Mild swelling noted to perineum. Area soft. Rectal area shows no external hemorrhoids or rectal prolapse. No erythema. No pus drainage. Area is not hot to touch. Mild bleeding noted from vaginal vault. No tenderness. EXTREMITIES: Normal range of motion, no pitting or edema. No clubbing or cyanosis. NEUROLOGICAL: Cranial nerves II through XII grossly intact. Normal speech, normal gait. PSYCH: Normal mood, normal affect. SKIN: Warm, Dry, normal turgor, no rashes or lesions noted. Course - Re-evaluation Re-evalutation: 04/15/19 nontoxic, well-appearing. Swelling noted to perineum without redness or purulent discharge. Area is soft nontender. Patient has follow-up with [facility] on Wednesday. Patient encouraged to keep this appointment. Strict return precautions given. All questions/concerns addressed prior to discharge. - Vital Signs Vital signs: Temp Pulse Resp BP Pulse Ox 97.6 F 94 18 146/93 H 100 04/15/19 18:21 04/15/19 18:21 04/15/19 18:21 04/15/19 18:21 04/15/19 18:21 - Laboratory Laboratory results interpreted by me: 04/15/19 18:47 Urine Protein 30 H Urine Blood MODERATE H Ur Leukocyte Esterase MODERATE H Discharge - Discharge Clinical Impression: Swelling of perineal tissue Condition: Stable Disposition: HOME, SELF-CARE Additional Instructions: Please keep your appointment with your [facility] on Wednesday. Please watch for any signs of infection, including redness, increased swelling, pain, pus drainage. Please return to ER immediately for any worsening symptoms, including signs of infection, fever, pain, nausea/vomiting increased bleeding, or any other symptoms that are concerning to you. Referrals: DAVID CONWAY MD [Primary Care Provider] - Follow up in 3-5 days
== END 2019-04-15 23:58 | disposition home or self-care (01) ==
LOC: ER 17:57
DX: O90.89 Other complications of the puerperium, not elsewhere classified (principal); R22.2 Localized swelling, mass and lump, trunk; Z98.890 Other specified postprocedural states
CPT/HCPCS: 81001; 99283